=== PATIENT | male | born 1985 ===

== ENCOUNTER 2023-12-31 06:57 | Emergency (ER) | payer OTHER, SELFPAY ==
--- NOTE | ~2023-12-31 | XR_ITS ---
EXAMINATION: XR CHEST CLINICAL INFORMATION: Chest pain and cough. COMPARISON: 08/02/2012 TECHNIQUE: 2 views of the chest were obtained. FINDINGS: No significant abnormality is noted involving the heart, lungs, mediastinum, bony thorax or soft tissues. XR/XR chest 2V IMPRESSION: Unremarkable examination.
[2023-12-31 07:01] VITALS: BP 160/78; PULSE 93; O2SAT 96
[2023-12-31 07:09] VITALS: BP 123/88; PULSE 92; RESP 16; TEMP 37.1; O2SAT 95; BMI 34.0
[2023-12-31 07:14] VITALS: RESP 14
--- NOTE | 2023-12-31 07:14 | PC.NURSE ---
Patient arrives by EMS, appears to be anxious, unable to fully sit still, avoiding direct eye contact with this RN, speech occasionally pressure. Patient reports that he called 911 because he has been having increasing suicidal thoughts over the past few days seconadry to being off medications and smoking crack regularly. He denies any plan to hurt himself, but endorses constant thoughts. He is calm and cooperative but does report increased anxiety and inability to focus. He is requesting something to help with the anxiety. He is alert and oriented x4, respriations even and unlabored, appears to be in no apparent distress at this time, MD aware of patient's increased anxiety
--- NOTE | 2023-12-31 07:20 | ED_ITS ---
HPI - Anxiety General Chief Complaint: Psychiatric Symptoms Stated Complaint: SI, NO PLAN,ANXIETY PER EMS Time Seen by Provider: 12/31/23 06:59 Source: patient, EMS, RN notes reviewed and old records reviewed Mode of arrival: EMS Limitations: no limitations History of Present Illness HPI narrative: 38 year old male with pmhx significant for polysubstance abuse and asthma presents to the ED today via EMS from home for evaluation of anxiety, depression, and increased suicidal ideation x 1 month. He denies current plan however has thought about jumping in front of a car recently. Denies HI. Denies AH/TH/VH. Endorses smoking crack cocaine, last used yesterday. States his only past medical history is asthma and does not currently take anything for this. Additionally he endorses intermittent sharp left-sided chest pain x months. These episodes will last for a few minutes before completely resolving on their own. No clear exacerbating or relieving factors. Has not had these symptoms before. He does not have chest pain at present. States he would like my lungs checked as he smokes a lot of cocaine and marijuana. Last week he was coughing and coughed up bloody sputum. Denies ETOH consumption. Denies fever, chills, neck or back pain, shortness of breath, palpitations, abdominal pain, nausea/vomiting. Related Data Home Medications Medication Instructions Recorded Confirmed No Known Home Meds 12/31/23 12/31/23 Allergies Allergy/AdvReac Type Severity Reaction Status Date / Time hydrocodone [From VICODIN] Allergy Mild NAUSEA & Unverified 12/31/23 07:18 VOMITING Review of Systems 2 Review of Systems: Constitutional: No fever, chills, fatigue, night sweats, weight changes ENT/Mouth: No ear pain, hearing loss, nasal congestion, sinus pain, rhinorrhea, sore throat Eyes: No eye pain, swelling, redness, vision changes, discharge Cardio: No chest pain, palpitations, GIBSON, orthopnea, peripheral edema Pulm: No SOB, cough, sputum, wheezing, dyspnea, hemoptysis GI: No nausea, vomiting, hematemesis, abdominal pain, diarrhea, constipation, hematochezia, melena : No irregular bleeding, dysuria, frequency, urgency, hesitancy, hematuria, flank pain, urinary flow changes, urinary incontinence or retention MSK: No back pain, neck pain, joint pain, myalgias Skin: No lesions, rashes Neuro: No weakness, numbness, paresthesias, LOC, dizziness, headache Psych: No HI, AH/VH, + anxiety, + depression, + suicidal ideation All other systems reviewed and are negative. [facility] Past Medical History Attestation statement: The following information was validated with the patient. Source: old records reviewed and nursing notes reviewed Social History Social History Alcohol intake: current Alcohol intake frequency: a few times a month Alcohol type: beer and hard liquor Smoked in Last 30 Days: Yes Use of substances other than those prescribed or required for medical reasons: Yes Substance Use Type: Crack/Cocaine and Marijuana Substance Use Frequency: Chronic Longstanding Last Used Substance: Days (ago) Any prior treatment program specific to substance use: No Advance Directives: No Advance Directives Information Provided: No Physical Exam 2 Vital Signs: Vital Signs: Last Vital Signs Temp 98.8 F 12/31/23 07:09 Pulse 92 12/31/23 07:09 Resp 14 12/31/23 07:14 BP 123/88 12/31/23 07:09 Pulse Ox 95 12/31/23 07:09 O2 Del Method Room Air 12/31/23 07:09 BMI result Body Mass Index 34.0 Vital signs stable, afebrile Const: Other: + anxious, restless General: cooperative and no acute distress Orientation/consciousness: p atient oriented x3 Limitations: no limitations HEENT: Head: Yes normal to inspection, Yes normocephalic and Yes atraumatic Eyes: Other: + injected conjunctiva bilaterally Pupils: Equal, round and reactive pupils present Neck: Neck: Yes normal visual inspection, Yes full ROM and Yes no lymphadenopathy Chest: Chest palpation & inspection: normal inspection of the chest and normal palpation of entire chest wall Resp: Effort & Inspection: normal respiratory effort and able to speak in complete sentences Auscultation: clear to auscultation bilaterally Cardio: Rate: regular rate Rhythm: regular rhythm GI: Inspection: Yes normal to inspection : General: Yes no CVA tenderness Back/Spine/Pelvis: Back: no CVA tenderness Skin: General skin exam: no rashes or lesions noted Neuro: General: patient oriented x3 and gait normal Cranial nerves: Yes CN's II-XII intact bilaterally and Yes Equal, round and reactive pupils present Extrem: General: Yes normal to inspection Psych: Other: + pressured speech Attitude: cooperative Thought content: Suicidality present Course Course Course Narrative: 09-- CBC with slight leukocytosis to 11.7, no left shift. No anemia. H&H stable. Chemistry without acute electrolyte abnormality requiring intervention. Normal liver function. Lipase WNL. Troponin undetectable. Will repeat. Urine without infection or blood. Urine drug screen positive for cocaine and marijuana. Ethanol undetectable. Patient was tested negative for COVID. EKG shows normal sinus rhythm with sinus arrhythmia, rate of 72 beats per minute, QT 382, QTC 418. EKG does show LVH however there are no acute ischemic changes or ST elevations. CXR unremarkable. 1006-- physician observation initiated pending repeat troponin and care team evaluation. 1159-- delta troponin flat. No concern for ACS. Physician observation continued pending care team evaluation. Medications Administered Discontinued Medications Generic Name Dose Route Start Last Admin Trade Name Freq PRN Reason Stop Dose Admin Diphenhydramine HCl 50 mg 12/31/23 08:46 12/31/23 08:54 Diphenhydramine Hcl 25 Mg Capsule PO 12/31/23 08:47 50 mg ONCE ONE Administration Lorazepam 1 mg 12/31/23 07:21 12/31/23 07:31 Lorazepam 1 Mg Tablet PO 12/31/23 07:22 1 mg ONCE ONE Administration Lorazepam 2 mg 12/31/23 08:45 12/31/23 08:54 Lorazepam 1 Mg Tablet PO 12/31/23 08:46 2 mg ONCE ONE Administration Medical Decision Making Medical Decision Making [facility] Narrative: 38 year old male with pmhx significant for polysubstance abuse and asthma presents to the ED today via EMS from home for evaluation of anxiety, depression, and increased suicidal ideation x 1 month. Vital signs stable. He is nontoxic appearing in no acute distress. Visibly anxious and restless on exam. Bilateral conjunctival injection. Lungs CTA bilaterally. No wheezes rales rhonchi. RRR. No obvious skin lesions or rashes. Differential diagnosis includes polysubstance abuse, arrhythmia, ACS, pneumonia, anxiety, depression, SI Plan for labs, troponin, EKG, chest x-ray, care team consultation. Differential Diagnosis Differential Diagnoses: The differential diagnosis associated with the presentation includes As above. Admission/Observation Indicated Lab Data [facility] Lab Attestation statement: I reviewed the patient's lab results. As above 12/31/23 08:29 12/31/23 08:29 Labs: Lab Results 12/31/23 12/31/23 12/31/23 Range/Units 07:22 08:29 11:18 WBC 11.7 H (4.8-10.8) X10*3/uL RBC 5.06 (4.60-5.80) X10*6/uL Hgb 15.8 (14.0-18.0) g/dl Hct 45.0 (42.0-52.0) % MCV 88.9 (80.0-98.0) fL MCH 31.2 (27.0-33.0) pg MCHC 35.1 (31.0-36.0) g/dl RDW 11.9 (11.0-16.0) % Plt Count 215 (160-400) X10*3/uL MPV 10.6 (9.4-12.4) fL Immature Gran % (Auto) 0.5 H (0.0-0.4) % Neut % (Auto) 68.1 (45-73) % Lymph % (Auto) 22.1 (20-40) % Nelson % (Auto) 7.6 (2-11) % Eos % (Auto) 1.4 (0-4) % Baso % (Auto) 0.3 (0-2) % Lymph # (Auto) 2.6 (1.2-4.9) X10*3/uL Nelson # (Auto) 0.9 (0.1-1.2) X10*3/uL Eos # (Auto) 0.2 (0.0-0.4) X10*3/uL Baso # (Auto) 0.0 (0.0-0.2) X10*3/uL Abs Immat Gran (auto) 0.06 H (0.00-0.03) X10*3/uL Absolute Neuts (auto) 8.0 (2.0-8.3) x10*3/uL Absolute Nucleated RBC 0.000 (0.0-0.012) X10*3/uL Nucleated RBC % (auto) 0.0 (0.0-0.2) /100WBC Sodium 140 (135-145) mmol/L Potassium 3.3 (3.3-5.1) mmol/L Chloride 106 (96-108) mmol/L Carbon Dioxide 26 (22-29) mmol/L Anion Gap 11 L (12-20) BUN 22 H (9-16) mg/dL Creatinine 1.22 (0.5-1.4) mg/dL Estim Creat Clear Calc 97.7 Estimated GFR > 60 Random Glucose 114 (60-115) mg/dL Calcium 9.4 (8.4-10.2) mg/dL Magnesium 1.9 (1.6-2.6) mg/dL Total Bilirubin 0.6 (0.0-1.0) mg/dL AST 18 (5-37) U/L ALT 17 (0-40) U/L Alkaline Phosphatase 83 (39-117) U/L Troponin I High Sens < 2.7 < 2.7 (<3.5-35.0) ng/L Total Protein 7.6 (6.5-8.0) g/dL Albumin 4.4 (3.5-5.0) g/dL Lipase 32 (8-78) U/L Urine Color Yellow Urine Appearance Clear Urine pH 5.5 (5.0-9.0) Ur Specific [place] >= 1.030 H (1.005-1.025) Urine Protein Negative (Neg-Trace) mg/dL Urine Glucose (UA) Negative (Negative) mg/dL Urine Ketones Trace (Negative) mg/dL Urine Blood Negative (Negative) Urine Nitrite Negative (Negative) Ur Leukocyte Esterase Negative (Negative) Salicylates < 5.0 L (15-30) mg/dL Urine Opiates Screen Not Detected (Not Detect) Urine Fentanyl Screen Not Detected (Not Detect) Ur Barbiturates Screen Not Detected (Not Detect) Ur Phencyclidine Scrn Not Detected (Not Detect) Ur Amphetamines Screen Not Detected (Not Detect) U Benzodiazepines Scrn Not Detected (Not Detect) Urine Cocaine Screen POSITIVE H (Not Detect) U Marijuana (THC) Screen POSITIVE H (Not Detect) Ethyl Alcohol < 10 mg/dL COVID-19 (SUNI) Negative (Negative) COVID-19 Clin Com See Note Independent Interpretation I performed an independent interpretation of an: EKG and Plain X-Ray Interpretation: EKG showed normal sinus rhythm with sinus arrhythmia at a rate of 72 beats per minute, QT 382, QTC 418, possible left ventricular hypertrophy, no acute ischemic changes or ST elevations. Findings discussed with my attending physician, Dr. Jhaveri. I have personally reviewed chest x-ray and agree with radiologist's interpretation. Radiology Impression Discussion of test interpretation with radiology: I have reviewed the radiologist's reading. Radiologist Impression: XR chest 2V IMPRESSION: Unremarkable examination. Independent Historian Clinical information obtained from an independent historian. History obtained from or confirmed by: EMS Prescription Management I considered prescription management with: Other (Anxiolytic) Chronic Conditions Patient?s care impacted by: Other (asthma, polysubstance abuse) Social Determinants Patient?s care significantly limited by Social Determinants of Health including: Alcoholism and drug addiction in family, Problems related to primary support group and Other Social Determinant of Health Discharge Plan Discharge Clinical Impression: Acute anxiety, Suicidal ideation, Depression, Polysubstance abuse Patient Disposition: Still a Patient Additional Instructions: Your labs are normal. Your urine does not show infection. Your EKG was reassuring. Your chest xray was normal. Prescriptions: No Action No Known Home Meds Interventions: [place]-Suicide Risk Severity Scale Last Done: 12/31/23 07:12
[2023-12-31 07:31] LABS: Appearance Urine Clear; Color Urine Yellow; Glucose Urine UA Negative (Negative); Leukocyte Esterase Urine Negative (Negative); Nitrite Urine Negative (Negative); PH 5.5 (5.0-9.0); Specific Gravity - Urine >= 1.030 (1.005-1.025); Urine Blood Negative (Negative); Urine Ketones Trace mg/dL (Negative); Urine Protein Negative (Neg-Trace)
[2023-12-31] MEDS: LORazepam 1 MG TABLET PO (07:31)
[2023-12-31 07:35] LABS: Amphetamine Screen Urine Not Detected (Not Detect); Barbiturates, Urine Not Detected (Not Detect); Benzodiazepines Screen Urine Not Detected (Not Detect); Cannabinoid Screen Urine POSITIVE (Not Detect); Cocaine Screen Urine POSITIVE (Not Detect); Fentanyl, urine Not Detected (Not Detect); Opiate Screen Urine Not Detected (Not Detect); Phencyclidine Screen Urine Not Detected (Not Detect)
--- NOTE | 2023-12-31 07:41 | ECG_ITS ---
Test Reason : CHEST PAIN Blood Pressure : / mmHG Vent. Rate : 072 BPM Atrial Rate : 072 BPM P-R Int : 142 ms QRS Dur : 102 ms QT Int : 382 ms P-R-T Axes : -08 -07 -07 degrees QTc Int : 418 ms Normal sinus rhythm with sinus arrhythmia Voltage criteria for left ventricular hypertrophy ( R in aVL , Sokolow-Luke , [place] product ) Abnormal ECG When compared with ECG of 16-AUG-2019 09:14, Questionable change in QRS axis T wave inversion now evident in Inferior leads Referred By: America Stark Electronically Signed By:PATRICIA MORELAND MD
[2023-12-31 08:35] LABS: MANUAL DIFF FLAG NO
[2023-12-31 08:42] LABS: Basophils Percent Auto 0.3 % (0-2); Eosinophils Absolute Auto 0.2 X10*3/uL (0.0-0.4); Eosinophils Percent Auto 1.4 % (0-4); Hemoglobin 15.8 g/dl (14.0-18.0); Imm Gran Abs Auto 0.06 X10*3/uL (0.00-0.03); Imm Gran Pct Auto 0.5 % (0.0-0.4); Lymphocytes Absolute Auto 2.6 X10*3/uL (1.2-4.9); Lymphocytes Percent Auto 22.1 % (20-40); Mean Corpuscular HGB Conc 35.1 g/dl (31.0-36.0); Mean Corpuscular Hemoglobin 31.2 pg (27.0-33.0); Mean Corpuscular Volume 88.9 fL (80.0-98.0); Mean Platelet Volume 10.6 fL (9.4-12.4); Monocytes Absolute Auto 0.9 X10*3/uL (0.1-1.2); Monocytes Percent Auto 7.6 % (2-11); Neutrophils Percent Auto 68.1 % (45-73); Platelet Count 215 X10*3/uL (160-400); Red Blood Count 5.06 X10*6/uL (4.60-5.80); Red Cell Distribution Width 11.9 % (11.0-16.0); White Blood Count 11.7 X10*3/uL (4.8-10.8)
[2023-12-31 08:49] LABS: COVID-19 Test Negative (Negative); IDNOW Serial# 152EDE1D
--- NOTE | 2023-12-31 08:50 | PC.NURSE ---
patient reporting increasing anxiety despite dose of Ativan, MOHINDER Cross aware
[2023-12-31 08:51] LABS: Salicylate < 5.0 mg/dL (15-30)
[2023-12-31 08:53] LABS: Alanine Aminotransferase 17 U/L (0-40); Albumin Level 4.4 g/dL (3.5-5.0); Alkaline Phosphatase 83 U/L (39-117); Anion Gap 11 (12-20); Aspartate Amino Transferase 18 U/L (5-37); Bilirubin Total 0.6 mg/dL (0.0-1.0); Blood Urea Nitrogen 22 mg/dL (9-16); Calcium 9.4 mg/dL (8.4-10.2); Carbon Dioxide 26 mmol/L (22-29); Chloride 106 mmol/L (96-108); Creatinine Clr Calc Pharmacy 97.7; Estimated Glomerular Filt Rate > 60; Ethanol < 10 mg/dL; Glucose Random 114 mg/dL (60-115); Lipase 32 U/L (8-78); Magnesium 1.9 mg/dL (1.6-2.6); Potassium 3.3 mmol/L (3.3-5.1); Sodium 140 mmol/L (135-145); Total Protein 7.6 g/dL (6.5-8.0)
[2023-12-31] MEDS: diphenhydrAMINE HCL 25 MG CAPSULE 50 MG PO (08:54)
[2023-12-31] MEDS: LORazepam 1 MG TABLET 2 MG PO ×2 (08:54→17:40)
[2023-12-31 09:01] LABS: Troponin-I High Sensitivity < 2.7 ng/L (<3.5-35.0)
[2023-12-31 11:53] LABS: Troponin-I High Sensitivity < 2.7 ng/L (<3.5-35.0)
--- NOTE | 2023-12-31 13:08 | PC.NURSE ---
Patient appears to be sleeping, respirations even and unlabored, no apparent distress noted. Pt medically cleared and seen by CARE team, lunch placed by patient's bed
--- NOTE | 2023-12-31 17:17 | MHC.CARE ---
Patient evaluated by the CARE Team and determined most appropriate for [facility] and referral was made to [facility] at 1300 and patient completed phone screening. Facility does not have staff to complete intakes today and patient will need to be re-referred in the am. CARE Team to follow up. Patient is not on a Section 12A. Dr. Jhaveri updated and in agreement with plan
--- NOTE | 2023-12-31 18:10 | PC.NURSE ---
Late entry: patient reports increasing anxiety. MOHINDER Jose aware, medication ordered and administered per MAR
--- NOTE | 2023-12-31 19:32 | PC.NURSE ---
patient visible in milieu, receivd visitor who brought him some frozen snacks and sodas, patient frequesntly approaching desk for various requests, but appropriate.
[2023-12-31] MEDS: Nicotine Polacrilex 2 MG GUM BUCCAL (19:46)
[2023-12-31 19:55] VITALS: BP 111/73; PULSE 78; RESP 18; TEMP 36.8; O2SAT 98
[2024-01-01] MEDS: LORazepam 1 MG TABLET 2 MG PO (00:07)
--- NOTE | 2024-01-01 00:29 | PC.NURSE ---
client became increasingly demanding when he felt he was waiting too long for medication and didnt seem to understand having to share a provider with the remainder of ED, arguing with staff and using foul language, seeming frustrated by rules in pod (not being able to access phones after 0000) client later apologized for his behavior once meds delivered.
[2024-01-01 05:47] VITALS: RESP 16
--- NOTE | 2024-01-01 07:15 | PC.NURSE ---
Assumed care of patient at 0700, patient awake eating breakfast in no apparent distress. Patient reports to this RN that night nurse was a fucking bitch, she wouldn't get my my meds quick enough . this RN attempted to clarify however, it seemed to upset patient more, patient was redirected and is now calm and cooperative in no apparent distress. Continue plan of care for sec 12 inpatient bedsearch
[2024-01-01 07:19] VITALS: BP 119/78; PULSE 66; RESP 16; TEMP 36.2; O2SAT 100
--- NOTE | 2024-01-01 09:03 | MHC.CARE ---
CARE Team activated [facility] referral
[2024-01-01] MEDS: LORazepam 1 MG TABLET PO (11:41)
--- NOTE | 2024-01-01 12:13 | MHC.CARE ---
CARE Team received a call from [facility] Pt has been accepted for 1330 admission
[2024-01-01 12:21] VITALS: BP 124/87; PULSE 87; RESP 16; TEMP 36.6; O2SAT 99
== END 2024-01-01 12:28 | disposition home or self-care (01) ==
PROVIDERS: Physician Assistant Medical; Emergency Provider Emergency Medicine
DX: F41.9 Anxiety disorder, unspecified (principal); R45.851 Suicidal ideations; F32.A Depression, unspecified; F19.10 Other psychoactive substance abuse, uncomplicated; Z11.52 Encounter for screening for COVID-19; R07.9 Chest pain, unspecified; J45.909 Unspecified asthma, uncomplicated
CPT/HCPCS: 36415; 71046; 80053; 80179; 80307; 81003; 83690; 83735; 84484; 85025; 87635; 93005; 99285; S9485

== ENCOUNTER → 2023-12-31 07:41 | Outpatient (BNV) | payer OTHER, SELFPAY | PROVIDERS: Emergency Provider Emergency Medicine; Visit Provider Internal Medicine Cardiovascular Disease | DX: R07.9 Chest pain, unspecified (principal) | CPT/HCPCS: 93010 ==

== ENCOUNTER 2024-09-25 09:01 | Emergency (ER) | payer OTHER, SELFPAY ==
[2024-09-25 09:03] VITALS: BP 146/76; PULSE 105; RESP 18; TEMP 36.3; O2SAT 98; BMI 36.9
--- NOTE | 2024-09-25 09:32 | ED_ITS ---
HPI - General Adult General Chief complaint: Psychiatric Symptoms Stated complaint: si Time Seen by Provider: 09/25/24 09:29 Source: patient Mode of arrival: ambulatory Limitations: no limitations History of Present Illness ED Provider: Melody Suggs PA-C HPI narrative: Patient is a 39 year old assigned male at with a history of crack/cocaine use/abuse, alcohol use/abuse, and marijuana use/abuse presenting to the emergency department today with suicidal ideation. Patient states that he was recently at the [facility] in [place] but felt as though he was not getting the treatment he needs. Patient states that he feels as though he is going to hurt himself if he does not get help. Patient denies any dizziness, lightheadedness, abdominal pain, nausea, vomiting, fever, chills, blurry vision, double vision, loss of vision, chest pain, difficulty breathing, shortness of breath, back pain, night sweats, pain with urination, increased urinary frequency, increased urinary urgency, blood in his urine or stool, syncope or a near syncopal episode, recent trauma or falls, bowel incontinence, bladder incontinence, or any other complaints at this time. Relieving factors: none Exacerbating factors: none Associated symptoms: denies other symptoms Treatments prior to arrival: none Related Data Home Medications ?Medication ?Instructions ?Recorded ?Confirmed buspirone 15 mg tablet 15 mg PO TID 09/25/24 09/25/24 clonidine HCl 0.1 mg tablet 0.1 mg PO BEDTIME 09/25/24 09/25/24 escitalopram oxalate 10 mg tablet 10 mg PO DAILY 09/25/24 09/25/24 gabapentin 400 mg capsule 400 mg PO TID 09/25/24 09/25/24 naltrexone 50 mg tablet 50 mg PO DAILY 09/25/24 09/25/24 trazodone 50 mg tablet 50 - 100 mg PO BEDTIME PRN Insomnia 09/25/24 09/25/24 Allergies Allergy/AdvReac Type Severity Reaction Status Date / Time hydrocodone [From VICODIN] Allergy Mild NAUSEA & Verified 09/25/24 09:06 VOMITING Review of Systems 2 Constitutional: Constitutional: Reports no additional constitutional complaints, Denies chills, Denies fever(s) and Denies night sweats Eyes: Eyes: Reports no additional eye complaints, Denies blurry vision, Denies change in vision, Denies diplopia, Denies eye discharge, Denies loss of vision and Denies eye pain ENT: Denies dizziness Cardiovascular: Cardiovascular: Reports no additional cardiovascular complaints, Denies chest pain, Denies lightheadedness, Denies Loss of Consciousness and Denies dyspnea Respiratory: Respiratory: Reports no additional respiratory complaints and Denies dyspnea Gastrointestinal: Gastrointestinal: Reports no additional gastrointestinal complaints, Denies abdominal pain, Denies melena, Denies hematochezia, Denies change in bowel habits and Denies change in stool character Genitourinary: Genitourinary: Reports no additional male genitourinary complaints, Denies hematuria, Denies oliguria, Denies difficulty urinating, Denies dysuria, Denies urinary frequency, Denies urinary hesitancy, Denies urinary incontinence and Denies urinary urgency Musculoskeletal: Musculoskeletal: Reports no additional musculoskeletal complaints, Denies numbness and Denies tingling Neurologic: Denies dizziness, Denies loss of vision, Denies numbness and Denies tingling Psychiatric: Psychiatric: Reports no additional psychiatric complaints, Denies homicidal ideation and Reports suicidal ideation Endocrine: Endocrine: Reports no additional endocrine complaints Hematologic/Lymphatic: Hematologic/Lymphatic: Reports no additional hematologic/lymphatic complaints Allergic/Immunologic: Allergic/Immunologic: Reports no additional allergic/immunologic complaints PMF Past Medical History Attestation statement: The following information was validated with the patient. Source: old records reviewed and nursing notes reviewed Social History Social History Alcohol intake: current Alcohol intake frequency: 3 or more drinks per day Alcohol type: hard liquor Smoked in Last 30 Days: Yes Use of substances other than those prescribed or required for medical reasons: Yes Substance Use Type: Crack/Cocaine and Marijuana Substance Use Frequency: Daily Substance Use Frequency Other:: has been on a binge with drinking and drugs for the past 2-3 days Last Used Substance: Just Prior to Admission Any prior treatment program specific to substance use: Yes Advance Directives: No Advance Directives Information Provided: No Physical Exam ED Vital Signs: Vital Signs - 24 hr 09/25/24 09:03 09/25/24 14:00 Temperature 97.3 F Pulse Rate 105 H Respiratory Rate 18 16 Blood Pressure 146/76 H Pulse Oximetry 98 Oxygen Delivery Method Room Air BMI result Body Mass Index 36.9 Const General: cooperative, no acute distress, alert and awake Nutritional Appearance: well nourished Orientation/consciousness: patient oriented x3 Limitations: no limitations HENMT Head: Yes normal to inspection and Yes atraumatic Ears: hearing grossly normal bilaterally and external ears normal General nose exam: Normal external nose present, no nasal discharge noted and no epistaxis Face and sinus: Yes normal facial exam, No abrasion and No laceration Mouth: Normal oral and palatal mucosa present, no drooling and no muffled voice Eyes General: appearance normal, both eyes and all related structures Periorbital: periorbital findings normal Eyelids: Yes eyelids normal Conjunctivae: conjunctivae normal Pupils: Equal, round and reactive pupils present EOM: EOMs intact bilaterally Neck Neck: Yes normal visual inspection, Yes full ROM and Yes no lymphadenopathy Chest Chest palpation & inspection: normal inspection of the chest Resp Effort & Inspection: normal respiratory effort and able to speak in complete sentences GI Inspection: Yes normal to inspection Neuro General: patient oriented x3 and moves all extremities Cranial nerves: Yes Equal, round and reactive pupils present Cognition (Neuro): normal cognition Extrem General: Yes normal to inspection, Yes full ROM and Yes capillary refill normal Psych Appearance: grossly normal Mental Status: mental status grossly normal Affect: Sad affect present Attitude: Guarded attititude/behavior present Thought content: Suicidality present Medications Administered Discontinued Medications Generic Name Dose Route Start Last Admin Trade Name Jennifer PRN Reason Stop Dose Admin Ibuprofen 600 mg 09/25/24 09:09 09/25/24 11:30 Ibuprofen 600 Mg Tablet PO 09/25/24 09:10 600 mg ONCE ONE Administration Lorazepam 2 mg 09/25/24 10:35 09/25/24 11:30 Lorazepam 1 Mg Tablet PO 09/25/24 10:36 2 mg ONCE ONE Administration Medical Decision Making Medical Decision Making [facility] Narrative: Patient is a 39 year old assigned male at with a history of crack/cocaine use/abuse, alcohol use/abuse, and marijuana use/abuse presenting to the emergency department today with suicidal ideation. Patient's physical exam was as noted in the physical exam portion of this note. Patient's blood work showed an elevated WBC count of 16.5 however, the patient's clinical presentation is not consistent with infection or sepsis (@1000). This elevation is likely secondary to a stress reaction. Patient's urine showed no acute process. Patient's EKG was unremarkable.I explained my physical exam findings as well as all test results to the patient. I answered all questions asked by the patient. Patient's disposition is pending CARE team evaluation. 1630 ---> Patient evaluated by CARE team who arranged disposition for the patient. Patient cleared for discharged and observation ended with no indication for hospitalization at 1630 on 09/25/2024. Differential Diagnosis Differential Diagnoses: The differential diagnosis associated with the presentation includes Suicidal ideation Depression Cocaine abuse Alcohol abuse Marijuana abuse Admission/Observation Consideration of admission/observation: Escalation of care including admission/observation considered Patient would have been admitted to the hospital had his work up had any findings where hospital admission was appropriate and his clinical presentation warranted hospital admission. Consult Healthcare Provider Management of the patient was discussed with: Behavioral Health Provider (spoke to the CARE team as noted in the MDM Rationale portion of this note.) Lab Data [facility] Lab Attestation statement: I reviewed the patient's lab results. My interpretation of these results are in the MDM Rationale portion of this note. 09/25/24 09:46 09/25/24 09:46 Labs: Lab Results 09/25/24 09/25/24 Range/Units 09:46 09:49 WBC 16.5 H (4.8-10.8) X10*3/uL RBC 4.84 (4.60-5.80) X10*6/uL Hgb 15.0 (14.0-18.0) g/dl Hct 42.5 (42.0-52.0) % MCV 87.8 (80.0-98.0) fL MCH 31.0 (27.0-33.0) pg MCHC 35.3 (31.0-36.0) g/dl RDW 12.1 (11.0-16.0) % Plt Count 231 (160-400) X10*3/uL MPV 9.8 (9.4-12.4) fL Immature Gran % (Auto) 0.5 H (0.0-0.4) % Neut % (Auto) 79.6 H (45-73) % Lymph % (Auto) 11.7 L (20-40) % [place] % (Auto) 7.9 (2-11) % Eos % (Auto) 0.1 (0-4) % Baso % (Auto) 0.2 (0-2) % Lymph # (Auto) 1.9 (1.2-4.9) X10*3/uL [place] # (Auto) 1.3 H (0.1-1.2) X10*3/uL Eos # (Auto) 0.0 (0.0-0.4) X10*3/uL Baso # (Auto) 0.0 (0.0-0.2) X10*3/uL Abs Immat Gran (auto) 0.09 H (0.00-0.03) X10*3/uL Absolute Neuts (auto) 13.1 H (2.0-8.3) x10*3/uL Absolute Nucleated RBC 0.000 (0.0-0.012) X10*3/uL Nucleated RBC % (auto) 0.0 (0.0-0.2) /100WBC Sodium 138 (135-145) mmol/L Potassium 3.7 (3.3-5.1) mmol/L Chloride 101 (96-108) mmol/L Carbon Dioxide 23 (22-29) mmol/L Anion Gap 18 (12-20) BUN 19 H (9-16) mg/dL Creatinine 0.94 (0.5-1.4) mg/dL Estim Creat Clear Calc 130.8 Estimated GFR > 60 Random Glucose 111 (60-115) mg/dL Calcium 9.6 (8.4-10.2) mg/dL Total Bilirubin 0.3 (0.0-1.0) mg/dL AST 35 (5-37) U/L ALT 27 (0-40) U/L Alkaline Phosphatase 85 (39-117) U/L Total Protein 7.6 (6.5-8.0) g/dL Albumin 4.4 (3.5-5.0) g/dL Salicylates < 5.0 L (15-30) mg/dL Urine Opiates Screen Not Detected (Not Detect) Ur Buprenorphine Scrn Not Detected (Not Detect) ng/mL Ur Oxycodone Screen Not Detected (Not Detect) ng/mL Urine Methadone Screen Not Detected (Not Detect) ng/mL Urine Fentanyl Screen Not Detected (Not Detect) Acetaminophen < 3 (<30) mcg/mL Ur Barbiturates Screen Not Detected (Not Detect) Ur Phencyclidine Scrn Not Detected (Not Detect) Ur Amphetamines Screen Not Detected (Not Detect) U Benzodiazepines Scrn Not Detected (Not Detect) Urine Cocaine Screen POSITIVE H (Not Detect) U Marijuana (THC) Screen POSITIVE H (Not Detect) Ethyl Alcohol < 10 mg/dL COVID-19 (SUNI) Negative (Negative) COVID-19 Clin Com See Note Independent Interpretation I performed an independent interpretation of an: EKG Interpretation: Vent. Rate: 088 BPM Atrial Rate: 088 BPM P-R Int: 140 ms QRS Dur: 098 ms QT Int: 354 ms P-R-T Axes: 062 055 036 degrees QTc Int: 428 ms Normal sinus rhythm Normal ECG When compared with ECG of 31-DEC-2023 09:17, Questionable change in QRS axis T wave inversion no longer evident in Inferior leads Referred By: Melody Suggs Electronically Signed By: DD/ 1020 Discharge Plan Discharge Clinical Impression: Depression Patient Disposition: Home, Self-Care Instructions: Depression (DC) Additional Instructions: Please go where the CARE Team has directed you to. Follow up with your primary care provider. Return to the emergency department immediately if your symptoms worsen or if you develop any dizziness, shortness of breath, difficulty breathing, chest pain, blurry vision, loss of vision, nausea, vomiting, abdominal pain, fever, chills, back pain, or any other complaints. [facility] at [facility]: [address] [place] [address] [phone] Walk in hours from 10am - 12pm Open from 10am - 12pm [facility] Crisis Services: [address] [place] [address] Walk in hours from 10am - 12pm Open 11/05 Behavioral health Network: [address] [place] [address] [place] [id number] Hours: M-F 8am to 8pm Thursday and Thursday 9am to 5pm Prescriptions: No Action clonidine HCl 0.1 mg tablet 0.1 mg PO BEDTIME trazodone 50 mg tablet 50 - 100 mg PO BEDTIME PRN (Reason: Insomnia) naltrexone 50 mg tablet 50 mg PO DAILY gabapentin 400 mg capsule 400 mg PO TID buspirone 15 mg tablet 15 mg PO TID escitalopram oxalate 10 mg tablet 10 mg PO DAILY Referrals: [facility] Family Medicine [Provider Group] (Call to establish and follow up with a primary care provider. If you already have a primary care provider, please follow up with them.) [facility] Primary Care, [place] [Provider Group] (Call to establish and follow up with a primary care provider. If you already have a primary care provider, please follow up with them.) [facility] Primary [facility] [Provider Group] (Call to establish and follow up with a primary care provider. If you already have a primary care provider, please follow up with them.) Interventions: [place]-Suicide Risk Severity Scale Last Done: 09/25/24 13:12 Print Language: Yi
--- NOTE | 2024-09-25 09:32 | ECG_ITS ---
Test Reason : MEDICAL CLEARANCE Blood Pressure : / mmHG Vent. Rate : 088 BPM Atrial Rate : 088 BPM P-R Int : 140 ms QRS Dur : 098 ms QT Int : 354 ms P-R-T Axes : 062 055 036 degrees QTc Int : 428 ms Normal sinus rhythm Normal ECG When compared with ECG of 31-DEC-2023 09:17, Questionable change in QRS axis T wave inversion no longer evident in Inferior leads Referred By: Melody Suggs Electronically Signed By:PATRICIA MORELAND MD
[2024-09-25 09:58] LABS: MANUAL DIFF FLAG NO
[2024-09-25 10:06] LABS: Basophils Percent Auto 0.2 % (0-2); Eosinophils Percent Auto 0.1 % (0-4); Hematocrit 42.5 % (42.0-52.0); Imm Gran Abs Auto 0.09 X10*3/uL (0.00-0.03); Imm Gran Pct Auto 0.5 % (0.0-0.4); Lymphocytes Absolute Auto 1.9 X10*3/uL (1.2-4.9); Lymphocytes Percent Auto 11.7 % (20-40); Mean Corpuscular HGB Conc 35.3 g/dl (31.0-36.0); Mean Corpuscular Volume 87.8 fL (80.0-98.0); Mean Platelet Volume 9.8 fL (9.4-12.4); Monocytes Absolute Auto 1.3 X10*3/uL (0.1-1.2); Monocytes Percent Auto 7.9 % (2-11); Neutrophils Absolute Auto 13.1 x10*3/uL (2.0-8.3); Neutrophils Percent Auto 79.6 % (45-73); Platelet Count 231 X10*3/uL (160-400); Red Blood Count 4.84 X10*6/uL (4.60-5.80); Red Cell Distribution Width 12.1 % (11.0-16.0); White Blood Count 16.5 X10*3/uL (4.8-10.8)
--- NOTE | 2024-09-25 10:14 | MHC.EDTECH ---
patient states he wants to stay here at the hospital because he feels unsafe with his thoughts of suicide . He states he is very depressed and is going through a lot at home and is very tired of dealing with it .
[2024-09-25 10:29] LABS: Acetaminophen LAB < 3 mcg/mL (<30); Alanine Aminotransferase 27 U/L (0-40); Albumin Level 4.4 g/dL (3.5-5.0); Alkaline Phosphatase 85 U/L (39-117); Anion Gap 18 (12-20); Aspartate Amino Transferase 35 U/L (5-37); Bilirubin Total 0.3 mg/dL (0.0-1.0); Blood Urea Nitrogen 19 mg/dL (9-16); Calcium 9.6 mg/dL (8.4-10.2); Carbon Dioxide 23 mmol/L (22-29); Chloride 101 mmol/L (96-108); Creatinine Clr Calc Pharmacy 130.8; Estimated Glomerular Filt Rate > 60; Ethanol < 10 mg/dL; Glucose Random 111 mg/dL (60-115); Potassium 3.7 mmol/L (3.3-5.1); Salicylate < 5.0 mg/dL (15-30); Sodium 138 mmol/L (135-145); Total Protein 7.6 g/dL (6.5-8.0)
[2024-09-25 10:30] LABS: Amphetamine Screen Urine Not Detected (Not Detect); Barbiturates, Urine Not Detected (Not Detect); Benzodiazepines Screen Urine Not Detected (Not Detect); Buprenorphine Scr Not Detected (Not Detect); Cannabinoid Screen Urine POSITIVE (Not Detect); Cocaine Screen Urine POSITIVE (Not Detect); Fentanyl, urine Not Detected (Not Detect); Methadone Screen, Urine Not Detected (Not Detect); Opiate Screen Urine Not Detected (Not Detect); Oxycodone Screen Urine Not Detected (Not Detect); Phencyclidine Screen Urine Not Detected (Not Detect)
[2024-09-25] MEDS: LORazepam 1 MG TABLET 2 MG PO (11:30)
[2024-09-25] MEDS: Ibuprofen 600 MG TABLET PO (11:30)
[2024-09-25 12:41] LABS: COVID-19 Test Negative (Negative); IDNOW Serial# 08D9AD1C
[2024-09-25 14:00] VITALS: RESP 16
--- NOTE | 2024-09-25 14:59 | PC.NURSE ---
assumed care of patient at 1445, patient appears to be sleeping, respirations even and unlabored, no apparent distress noted. Per previous RN, patient was very anxious throughout the day and therefore will hold off on vitals until patient is awake to avoid provoking anxiety. Continue plan of care for respite bedsearch
[2024-09-25 16:10] VITALS: BP 124/90; PULSE 75; RESP 16; TEMP 36.6; O2SAT 99
== END 2024-09-25 16:11 | disposition home or self-care (01) ==
PROVIDERS: Physician Assistant Medical; Emergency Provider Emergency Medicine Emergency Medical Services
DX: F33.1 Major depressive disorder, recurrent, moderate (principal); R45.851 Suicidal ideations; F14.90 Cocaine use, unspecified, uncomplicated; F12.10 Cannabis abuse, uncomplicated; Z11.52 Encounter for screening for COVID-19; Z79.899 Other long term (current) drug therapy; Z51.81 Encounter for therapeutic drug level monitoring
CPT/HCPCS: 80053; 80143; 80179; 80307; 85025; 87635; 93005; 99284; 99285

== ENCOUNTER → 2024-09-25 09:32 | Outpatient (BNV) | payer OTHER, SELFPAY | PROVIDERS: Emergency Provider Emergency Medicine Emergency Medical Services; Visit Provider Internal Medicine Cardiovascular Disease | DX: R45.851 Suicidal ideations (principal) | CPT/HCPCS: 93010 ==

== ENCOUNTER 2024-10-12 23:45 | Emergency (ER) | payer OTHER, SELFPAY ==
[2024-10-12 23:46] VITALS: BP 119/77; PULSE 89; RESP 16; TEMP 36.7; O2SAT 97; BMI 36.9
[2024-10-13] VITALS: BP 135/68; PULSE 77; RESP 18; TEMP 36.6; O2SAT 97
--- NOTE | 2024-10-13 01:30 | ED.DENTAL ---
HPI - Dental/Oral General Chief complaint: Dental/Oral Stated complaint: Dental Pain Time Seen by Provider: 10/13/24 01:20 Source: patient Mode of arrival: ambulatory Limitations: no limitations History of Present Illness ED Provider: HPI Narrative: Patient with toothache for last 2 days after biting on a popcorn no prior history of toothache Related Data Home Medications ?Medication ?Instructions ?Recorded ?Confirmed buspirone 15 mg tablet 15 mg PO TID 09/25/24 09/25/24 clonidine HCl 0.1 mg tablet 0.1 mg PO BEDTIME 09/25/24 09/25/24 escitalopram oxalate 10 mg tablet 10 mg PO DAILY 09/25/24 09/25/24 gabapentin 400 mg capsule 400 mg PO TID 09/25/24 09/25/24 naltrexone 50 mg tablet 50 mg PO DAILY 09/25/24 09/25/24 trazodone 50 mg tablet 50 - 100 mg PO BEDTIME PRN Insomnia 09/25/24 09/25/24 Previous Rx's ?Medication ?Instructions ?Recorded amoxicillin 875 mg-potassium 1 tab PO BID #20 tabs 10/13/24 clavulanate 125 mg tablet ibuprofen 600 mg tablet 600 mg PO Q6H PRN fever or pain 10/13/24 #30 tabs oxycodone 5 mg tablet 5 mg PO Q6H PRN pain #20 tabs 10/13/24 Allergies Allergy/AdvReac Type Severity Reaction Status Date / Time hydrocodone [From VICODIN] Allergy Mild NAUSEA & Verified 10/12/24 23:49 VOMITING Review of Systems Review of Systems: Yes all other systems are reviewed and are negative [facility] Social History Social History Alcohol intake: current Alcohol intake frequency: holidays/special occasions only Alcohol type: beer, wine and hard liquor Smoked in Last 30 Days: No Use of substances other than those prescribed or required for medical reasons: No Substance Use Type: Crack/Cocaine and Marijuana Any prior treatment program specific to substance use: No Advance Directives: No Advance Directives Information Provided: Yes Do you have a plan to hurt others: No Plan Physical Exam Vital Signs: Vital Signs: Last Vital Signs Temp 97.9 F 10/13/24 01:52 Pulse 77 12/26/24 01:52 Resp 18 10/13/24 01:52 BP 135/68 10/13/24 01:52 Pulse Ox 97 10/13/24 01:52 O2 Del Method Room Air 10/13/24 01:52 BMI result Body Mass Index 36.9 HEENT: Teeth image: 1. Tender tooth number 30 with small cavity in the middle no significant gum swelling no abscess Medications Administered Discontinued Medications Generic Name Dose Route Start Last Admin Trade Name Freq PRN Reason Stop Dose Admin Amoxicillin/Clavulanate Potassium 875 mg 10/13/24 01:31 10/13/24 01:48 Amoxicillin/Potassium Clav 875 Mg Tablet PO 10/13/24 01:32 875 mg ONCE ONE Administration Oxycodone HCl 10 mg 10/13/24 01:41 10/13/24 01:48 Oxycodone Hcl Immed Release 5 Mg Tablet PO 10/13/24 01:42 10 mg ONCE ONE Administration Medical Decision Making Medical Decision Making [facility] Narrative: Patient with dental pulpitis plan to see dentist will prescribe oxycodone and Augmentin Discharge Plan Discharge Clinical Impression: Dental caries Patient Disposition: Home, Self-Care Instructions: Toothache (ED) Additional Instructions: Take pain medication antibiotic as prescribed and follow up with the dentist as scheduled Prescriptions: New amoxicillin-pot clavulanate 875-125 mg tablet 1 tab PO BID Qty: 20 0RF oxycodone 5 mg tablet 5 mg PO Q6H PRN (Reason: pain) Qty: 20 0RF Rx Instructions: Partial Fill upon patient request. ibuprofen 600 mg tablet 600 mg PO Q6H PRN (Reason: fever or pain) Qty: 30 0RF No Action clonidine HCl 0.1 mg tablet 0.1 mg PO BEDTIME trazodone 50 mg tablet 50 - 100 mg PO BEDTIME PRN (Reason: Insomnia) naltrexone 50 mg tablet 50 mg PO DAILY gabapentin 400 mg capsule 400 mg PO TID buspirone 15 mg tablet 15 mg PO TID escitalopram oxalate 10 mg tablet 10 mg PO DAILY Interventions: ED Discharge Assessment Last Done: 10/13/24 01:52 Discharge Date/Time: 10/13/24 01:53 Print Language: Kazakh
[2024-10-13] MEDS: Amoxicillin/Potassium Clav 875 MG TABLET PO (01:48)
[2024-10-13] MEDS: oxyCODONE HCl Immed Release 5 MG TABLET 10 MG PO (01:48)
[2024-10-13 01:52] VITALS: BP 135/68; PULSE 77; RESP 18; TEMP 36.6; O2SAT 97
== END 2024-10-13 01:53 | disposition home or self-care (01) ==
PROVIDERS: Emergency Provider Internal Medicine; PCP Internal Medicine
DX: K02.9 Dental caries, unspecified (principal); K08.89 Other specified disorders of teeth and supporting structures; F12.90 Cannabis use, unspecified, uncomplicated; Z79.899 Other long term (current) drug therapy
CPT/HCPCS: 99283; 99284

== ENCOUNTER 2024-12-04 15:42 | Emergency (ER) | payer OTHER, SELFPAY ==
[2024-12-04 16:02] VITALS: BP 104/69; PULSE 76; RESP 18; TEMP 36.4; O2SAT 98; BMI 38.4
--- NOTE | 2024-12-04 16:02 | ED_ITS ---
HPI - Dental/Oral General Chief complaint: Dental/Oral Stated complaint: toothache Time Seen by Provider: 12/04/24 16:04 Source: patient, RN notes reviewed and old records reviewed Mode of arrival: ambulatory History of Present Illness ED Provider: Lizbeth Zapata PA-C HPI Narrative: 39-year-old male with past medical history depression, anxiety, presenting to the ED complaining of right-sided dental pain x 2 months. Admits was seen in our ED a few months ago and reports continued pain since that visit. Denies contacting his dentist however states he will try a walk-in tomorrow. Has been taking Motrin at home without relief. Denies fever, chills, difficulty or inability to swallow, drainage from area Related Data Home Medications ?Medication ?Instructions ?Recorded ?Confirmed buspirone 15 mg tablet 15 mg PO TID 09/25/24 09/25/24 clonidine HCl 0.1 mg tablet 0.1 mg PO BEDTIME 09/25/24 09/25/24 escitalopram oxalate 10 mg tablet 10 mg PO DAILY 09/25/24 09/25/24 gabapentin 400 mg capsule 400 mg PO TID 09/25/24 09/25/24 naltrexone 50 mg tablet 50 mg PO DAILY 09/25/24 09/25/24 trazodone 50 mg tablet 50 - 100 mg PO BEDTIME PRN Insomnia 09/25/24 09/25/24 Previous Rx's ?Medication ?Instructions ?Recorded amoxicillin 875 mg-potassium 1 tab PO BID #20 tabs 10/13/24 clavulanate 125 mg tablet ibuprofen 600 mg tablet 600 mg PO Q6H PRN fever or pain 10/13/24 #30 tabs oxycodone 5 mg tablet 5 mg PO Q6H PRN pain #20 tabs 10/13/24 acetaminophen 500 mg tablet 500 mg PO Q6H PRN fever or pain 12/04/24 (Tylenol Extra Strength) #14 tabs amoxicillin 875 mg-potassium 1 tab PO BID 7 days #14 tabs 12/04/24 clavulanate 125 mg tablet morphine 15 mg immediate release 15 mg PO Q6H PRN pain (scale score 12/04/24 tablet 7-10) 3 days #5 tabs naproxen 500 mg tablet 500 mg PO BID PRN pain 10 days #20 12/04/24 tabs Allergies Allergy/AdvReac Type Severity Reaction Status Date / Time hydrocodone [From VICODIN] Allergy Mild NAUSEA & Verified 12/04/24 16:03 VOMITING Review of Systems Review of Systems: Yes all other systems are reviewed and are negative Constitutional: Constitutional: Reports as per [facility] Past Medical History Attestation statement: The following information was validated with the patient. Source: old records reviewed Social History Social History Alcohol intake: current Alcohol intake frequency: holidays/special occasions only Alcohol type: beer, wine and hard liquor Substance Use Type: Crack/Cocaine and Marijuana Physical Exam Vital Signs: Vital Signs: Last Vital Signs Temp 97.6 F 12/04/24 16:02 Pulse 76 12/04/24 16:02 Resp 18 12/04/24 16:02 BP 104/69 12/04/24 16:02 Pulse Ox 98 12/04/24 16:02 O2 Del Method Room Air 12/04/24 16:02 BMI result Body Mass Index 38.4 Const: General: cooperative, healthy appearing and no acute distress Orientation/consciousness: patient oriented x3 Limitations: no limitations HEENT: Other: No appreciable facial swelling. + right posterior lower molar with gingival tenderness. No cellulitis, fluctuance/induration. No drainage. Poor dentition, multiple caries. Head: Yes normal to inspection and Yes atraumatic Ears: hearing grossly normal bilaterally General nose exam: Normal external nose present Face and sinus: Yes normal facial exam Mouth: Normal oral and palatal mucosa present and no drooling Throat: Yes posterior oropharynx normal, Yes tonsils normal, Yes uvula midline, No peritonsillar mass, No uvula laterally displaced and No uvular edema Eyes: General: appearance normal, both eyes and all related structures EOM: EOMs intact bilaterally Neck: Neck: Yes normal visual inspection and Yes no meningeal signs Resp: Effort & Inspection: normal respiratory effort, no respiratory distress and no stridor Cardio: Rate: regular rate Skin: Rashes: no rashes Wounds: no wounds Neuro: General: patient oriented x3, tone normal and no meningeal signs Cranial nerves: Yes CN's II-XII intact bilaterally Gait exam (Neuro): Normal gait present Extrem: General: Yes normal to inspection Medical Decision Making Medical Decision Making MDM Narrative: 39-year-old male with past medical history depression, anxiety, presenting to the ED complaining of right-sided dental pain x 2 months. On exam vital signs stable, NAD, nontoxic appearing, physical exam as noted above. Concern for dental caries/early infection. No evidence of acute abscess or drainable collection at this time. No evidence of WOUND CARE COORDINATOR/retropharyngeal abscess. Plan: P.o. antibiotics, pain control, dentistry follow up tomorrow Please refer to course for remaining clinical decision making, interpretation of labs/imaging results, and discussions with consultants and/or family members. Results discussed with patient including worrisome signs and symptoms and strict return precautions, and when to return to the emergency department. They verbalized understanding and feel safe for discharge at this time. Differential Diagnosis Differential Diagnoses: The differential diagnosis associated with the presentation includes As above External Record Review External record reviewed: Inpatient record, Office record, Outpatient record, Prior outpatient labs, Prior outpatient radiology, Primary care record and Outside ED record Tests considered The following testing was considered but not selected: As above Prescription Management I considered prescription management with: Pain Medication Chronic Conditions Patient?s care impacted by: Other Social Determinants Patient?s care significantly limited by Social Determinants of Health including: Other Social Determinant of Health Discharge Plan Discharge Clinical Impression: Toothache Patient Disposition: Home, Self-Care Instructions: Toothache (ED) Additional Instructions: Augmentin as an antibiotic please take as prescribed In addition take naproxen and Tylenol for pain. Naproxen as an anti- inflammatory/pain medication, take with food Morphine as an opiate pain medication, take only when pain is severe for the next 3 days Follow-up with dentist tomorrow as discussed If symptoms persist or worsen her pain is unbearable return to the ED Prescriptions: New acetaminophen [Tylenol Extra Strength] 500 mg tablet 500 mg PO Q6H PRN (Reason: fever or pain) Qty: 14 0RF naproxen 500 mg tablet 500 mg PO BID PRN (Reason: pain) 10 Days Qty: 20 0RF amoxicillin-pot clavulanate 875-125 mg tablet 1 tab PO BID 7 Days Qty: 14 0RF morphine 15 mg tablet 15 mg PO Q6H PRN (Reason: pain (scale score 7-10)) 3 Days Qty: 5 0RF Rx Instructions: Partial Fill upon patient request. No Action clonidine HCl 0.1 mg tablet 0.1 mg PO BEDTIME trazodone 50 mg tablet 50 - 100 mg PO BEDTIME PRN (Reason: Insomnia) naltrexone 50 mg tablet 50 mg PO DAILY gabapentin 400 mg capsule 400 mg PO TID buspirone 15 mg tablet 15 mg PO TID escitalopram oxalate 10 mg tablet 10 mg PO DAILY amoxicillin-pot clavulanate 875-125 mg tablet 1 tab PO BID Qty: 20 0RF oxycodone 5 mg tablet 5 mg PO Q6H PRN (Reason: pain) Qty: 20 0RF Rx Instructions: Partial Fill upon patient request. ibuprofen 600 mg tablet 600 mg PO Q6H PRN (Reason: fever or pain) Qty: 30 0RF Referrals: Jeff Palencia [Dentist] - Triston Torres DMD [Dentist] - Marquis Razo DMD [Dentist] - Physician,None [Primary Care Provider] - Print Language: [place] African
[2024-12-04 16:21] VITALS: BP 104/69; PULSE 76; RESP 18; TEMP 36.4; O2SAT 98
== END 2024-12-04 16:21 | disposition home or self-care (01) ==
PROVIDERS: Emergency Provider Emergency Medicine
DX: K08.89 Other specified disorders of teeth and supporting structures (principal); Z79.899 Other long term (current) drug therapy
CPT/HCPCS: 99282; 99283

== ENCOUNTER 2024-12-20 00:19 | Inpatient (IN) | payer OTHER, SELFPAY ==
--- NOTE | 2024-12-20 | ECG_ITS ---
Test Reason : med clearance Blood Pressure : */* mmHG Vent. Rate : 71 BPM Atrial Rate : 71 BPM P-R Int : 144 ms QRS Dur : 98 ms QT Int : 368 ms P-R-T Axes : 65 59 58 degrees QTcB Int : 399 ms Normal sinus rhythm Normal ECG When compared with ECG of 25-Sep-2024 10:20, No significant change was found Referred By: Rylee Padron Electronically Signed By: PATRICIA MORELAND MD
[2024-12-20 00:24] VITALS: BP 121/79; PULSE 97; RESP 19; TEMP 37.2; O2SAT 94; BMI 38.4
[2024-12-20 00:36] LABS: MANUAL DIFF FLAG NO
[2024-12-20 00:37] LABS: Basophils Percent Auto 0.2 % (0-2); Eosinophils Absolute Auto 0.1 X10*3/uL (0.0-0.4); Eosinophils Percent Auto 0.6 % (0-4); Hematocrit 44.3 % (42.0-52.0); Hemoglobin 15.9 g/dl (14.0-18.0); Imm Gran Abs Auto 0.08 X10*3/uL (0.00-0.03); Imm Gran Pct Auto 0.7 % (0.0-0.4); Lymphocytes Absolute Auto 1.4 X10*3/uL (1.2-4.9); Lymphocytes Percent Auto 12.9 % (20-40); Mean Corpuscular HGB Conc 35.9 g/dl (31.0-36.0); Mean Corpuscular Hemoglobin 31.7 pg (27.0-33.0); Mean Corpuscular Volume 88.2 fL (80.0-98.0); Monocytes Absolute Auto 0.8 X10*3/uL (0.1-1.2); Monocytes Percent Auto 6.9 % (2-11); Neutrophils Absolute Auto 8.6 x10*3/uL (2.0-8.3); Neutrophils Percent Auto 78.7 % (45-73); Platelet Count 243 X10*3/uL (160-400); Red Blood Count 5.02 X10*6/uL (4.60-5.80); Red Cell Distribution Width 12.5 % (11.0-16.0); White Blood Count 10.9 X10*3/uL (4.8-10.8)
--- NOTE | 2024-12-20 00:46 | ED.PSYCH ---
HPI - Psych General Chief Complaint: Psychiatric Symptoms Stated Complaint: SI want's help! Time Seen by Provider: 12/20/24 00:39 Source: patient Mode of arrival: ambulatory Limitations: no limitations History of Present Illness ED Provider: Dr. Rylee Padron HPI Narrative: Patient comes to the emergency room complaining of anxiety, depression, suicidal thoughts with no plan. Patient states that he also wants help with detox for alcohol. Patient denies HI. Patient states that he was recently section 35 and was in an inpatient treatment facility. Patient requesting to be admitted. Related Data Previous Rx's ?Medication ?Instructions ?Recorded amoxicillin 875 mg-potassium 1 tab PO BID #20 tabs 10/13/24 clavulanate 125 mg tablet ibuprofen 600 mg tablet 600 mg PO Q6H PRN fever or pain 10/13/24 #30 tabs acetaminophen 500 mg tablet 500 mg PO Q6H PRN fever or pain 12/04/24 (Tylenol Extra Strength) #14 tabs amoxicillin 875 mg-potassium 1 tab PO BID 7 days #14 tabs 12/04/24 clavulanate 125 mg tablet Allergies Allergy/AdvReac Type Severity Reaction Status Date / Time hydrocodone [From VICODIN] Allergy Mild NAUSEA & Verified 12/20/24 00:25 VOMITING Review of Systems Review of Systems: Constitutional : No Weight loss, No Fever, No Chills, No Night Sweats, No Fatigue, No Malaise ENT/Mouth : No Hearing loss, No Ear Pain, No Nasal Congestion, No Sinus Pain, No Hoarseness, No sore throat, No Rhinorrhea, No Swallowing Difficulty Eyes: No Eye Pain, No Swelling, No Redness, No Foreign Body, No Discharge, No Vision Changes Cardiovascular : No Chest Pain, No SOB, No Dyspnea on Exertion, No Orthopnea, No Edema, No Palpitations Respiratory : No Cough, No Sputum, No Wheezing, No Smoke Exposure, No Dyspnea Gastrointestinal : No Nausea, No Vomiting, No Diarrhea, No Constipation, No abdominal Pain, No Hematochezia, No Melena Genitourinary : no irregular bleeding, No Dysuria, No Urinary Frequency, No Hematuria, No Urinary Incontinence, No Urgency, No Flank Pain, No Urinary Flow Changes, No Hesitancy Musculoskeletal : No joint pain, No Myalgias, No Joint Swelling Skin : No Skin Lesions, No rash Neuro : No Weakness, No Numbness, No Paresthesias, No Loss of Consciousness, No Dizziness, No Headache Psych : Complaining of anxiety, depression, suicidal thoughts with a plan, no HI, admits to polysubstance abuse Heme/Lymph: No Bruising, No Bleeding,No Lymphadenopathy Endocrine : No Polyuria, No Polydipsia, No Temperature Intolerance PMF Past Medical History Medical History (Updated 12/20/24 @ 00:51 by Rylee Padron MD) Suicidal ideation Depression Polysubstance abuse Social History Social History Alcohol intake: current Alcohol intake frequency: holidays/special occasions only Alcohol type: beer, wine and hard liquor Substance Use Type: Crack/Cocaine and Marijuana Advance Directives: No Advance Directives Information Provided: Yes Do you have a plan to hurt others: No Plan Physical Exam Vital Signs: Vital Signs: Last Vital Signs Temp 98.9 F 12/20/24 00:24 Pulse 97 12/20/24 00:24 Resp 19 12/20/24 00:24 BP 121/79 12/20/24 00:24 Pulse Ox 94 12/20/24 00:24 O2 Del Method Room Air 12/20/24 00:24 BMI result Body Mass Index 38.4 Const: Other: Appearance: Alert. Oriented X3. No acute distress. Eyes: Pupils equal, round and reactive to light. ENT: Pharynx normal. Neck: Normal inspection. Neck supple. No lymph nodes noted. No crepitus CVS: Normal heart rate and rhythm. Pulses normal. Normal S1 and S2 Respiratory: No respiratory distress. Breath sounds normal. No Wheezing. No rales Abdomen: Soft and nontender. No rigidity. No distention. Skin: Skin warm and dry. Normal skin color. Normal skin turgor. Extremities: No lower extremity edema. No Lacerations. No Rash Neuro: Oriented X 3. No motor deficit. No sensory deficit. Moving all extremities. No slurred speech. CN 2 through 12 grossly intact Psych: calm, cooperative, anxious Medical Decision Making Medical Decision Making [facility] Narrative: My interpretation of labs: At baseline hematology Chemistry Tachycardic Differential Diagnosis Differential Diagnoses: The differential diagnosis associated with the presentation includes (Anxiety, depression, polysubstance abuse) Admission/Observation Consideration of admission/observation: Escalation of care including admission/observation considered (Patient requesting to be admitted, care team evaluation pending to determine patient's disposition) Lab Data MDM Lab Attestation statement: I reviewed the patient's lab results. 12/20/24 00:30 12/20/24 00:30 Labs: Lab Results 12/20/24 Range/Units 00:30 WBC 10.9 H (4.8-10.8) X10*3/uL RBC 5.02 (4.60-5.80) X10*6/uL Hgb 15.9 (14.0-18.0) g/dl Hct 44.3 (42.0-52.0) % MCV 88.2 (80.0-98.0) fL MCH 31.7 (27.0-33.0) pg MCHC 35.9 (31.0-36.0) g/dl RDW 12.5 (11.0-16.0) % Plt Count 243 (160-400) X10*3/uL MPV 10.0 (9.4-12.4) fL Immature Gran % (Auto) 0.7 H (0.0-0.4) % Neut % (Auto) 78.7 H (45-73) % Lymph % (Auto) 12.9 L (20-40) % Coffey % (Auto) 6.9 (2-11) % Eos % (Auto) 0.6 (0-4) % Baso % (Auto) 0.2 (0-2) % Lymph # (Auto) 1.4 (1.2-4.9) X10*3/uL Coffey # (Auto) 0.8 (0.1-1.2) X10*3/uL Eos # (Auto) 0.1 (0.0-0.4) X10*3/uL Baso # (Auto) 0.0 (0.0-0.2) X10*3/uL Abs Immat Gran (auto) 0.08 H (0.00-0.03) X10*3/uL Absolute Neuts (auto) 8.6 H (2.0-8.3) x10*3/uL Absolute Nucleated RBC 0.000 (0.0-0.012) X10*3/uL Nucleated RBC % (auto) 0.0 (0.0-0.2) /100WBC Critical Care Time Critical Care Time Critical Care Time: Yes Total Critical Care Time: 35 Attestation: I have personally provided critical care time. Time includes review of lab data, radiology results, discussion with consultants, and monitoring for potential decompensation. Intervention performed as documented. Discharge Plan Discharge Clinical Impression: Suicidal ideation, Polysubstance abuse Patient Disposition: Still a Patient Prescriptions: No Action acetaminophen [Tylenol Extra Strength] 500 mg tablet 500 mg PO Q6H PRN (Reason: fever or pain) Qty: 14 0RF amoxicillin-pot clavulanate 875-125 mg tablet 1 tab PO BID 7 Days Qty: 14 0RF amoxicillin-pot clavulanate 875-125 mg tablet 1 tab PO BID Qty: 20 0RF ibuprofen 600 mg tablet 600 mg PO Q6H PRN (Reason: fever or pain) Qty: 30 0RF Print Language: Kittitian
[2024-12-20 00:50] LABS: Acetaminophen LAB < 3 mcg/mL (<30); Salicylate < 5.0 mg/dL (15-30)
[2024-12-20 00:56] LABS: Alkaline Phosphatase 87 U/L (39-117)
[2024-12-20 00:57] LABS: Alanine Aminotransferase 25 U/L (0-40); Albumin Level 4.4 g/dL (3.5-5.0); Anion Gap 15 (12-20); Aspartate Amino Transferase 26 U/L (5-37); Bilirubin Total 0.4 mg/dL (0.0-1.0); Blood Urea Nitrogen 18 mg/dL (9-16); Calcium 9.6 mg/dL (8.4-10.2); Carbon Dioxide 22 mmol/L (22-29); Chloride 105 mmol/L (96-108); Creatinine Clr Calc Pharmacy 123.2; Estimated Glomerular Filt Rate > 60; Ethanol < 10 mg/dL; Glucose Random 105 mg/dL (60-115); Potassium 4.1 mmol/L (3.3-5.1); Sodium 138 mmol/L (135-145); Total Protein 8.3 g/dL (6.5-8.0)
[2024-12-20] MEDS: LORazepam 1 MG TABLET 2 MG PO (00:57)
[2024-12-20 01:05] LABS: Amphetamine Screen Urine Not Detected (Not Detect); Barbiturates, Urine Not Detected (Not Detect); Benzodiazepines Screen Urine Not Detected (Not Detect); Buprenorphine Scr Not Detected (Not Detect); Cannabinoid Screen Urine POSITIVE (Not Detect); Cocaine Screen Urine POSITIVE (Not Detect); Fentanyl, urine Not Detected (Not Detect); Methadone Screen, Urine Not Detected (Not Detect); Opiate Screen Urine Not Detected (Not Detect); Oxycodone Screen Urine Not Detected (Not Detect); Phencyclidine Screen Urine Not Detected (Not Detect)
[2024-12-20 06:21] VITALS: BP 130/78; PULSE 82; RESP 18; TEMP 37.1; O2SAT 97
[2024-12-20 08:21] LABS: Appearance Urine Clear; Color Urine Yellow; Glucose Urine UA Negative (Negative); Leukocyte Esterase Urine Negative (Negative); Nitrite Urine Negative (Negative); PH 5.5 (5.0-9.0); Specific Gravity - Urine 1.025 (1.005-1.025); Urine Blood Negative (Negative); Urine Ketones Negative (Negative); Urine Protein Trace mg/dL (Neg-Trace)
[2024-12-20] MEDS: LORazepam 1 MG TABLET PO (11:11)
--- NOTE | 2024-12-20 11:11 | PC.NURSE ---
pt verbalizing increase in anxiety - provider notified/aware. medication administered per provider order. effectiveness pending.
--- NOTE | 2024-12-20 13:00 | PHA.MEDREC ---
Pharmacy Consult ? Medication Reconciliation Pharmacy has reviewed the medication reconciliation completed by Nursing. Pt is not on any meds.
[2024-12-20 14:09] VITALS: BMI 39.7
[2024-12-20 14:11] VITALS: BP 131/71; PULSE 80; RESP 20; TEMP 36.8; O2SAT 95
[2024-12-20] MEDS: Nicotine 21 MG PATCH.TD24 TRANSDERMA (14:56)
[2024-12-20] MEDS: Nicotine Polacrilex Lozenge 4 MG LOZENGE BUCCAL ×2 (14:56→21:13)
[2024-12-20 15:21] VITALS: BP 133/70
[2024-12-20] MEDS: cloNIDine HCL 0.1 MG TABLET PO (15:21)
[2024-12-20 17:08] VITALS: BP 128/74; PULSE 86
[2024-12-20] MEDS: Propranolol HCL 10 MG TABLET PO (17:08)
[2024-12-20] MEDS: Gabapentin 300 MG CAPSULE PO ×2 (17:08→21:08)
--- NOTE | 2024-12-20 18:46 | PC.ADMIT ---
Maisha is a 39 yr old male admitted to today on a CV. Patient presented to the ED c/o of anxiety, depression & suicidal thoughts with no plan.? Patient states that he also wants help with detox. He reports recently being inpatient for section 35.? He has relapsed since.? UTOX is positive for marijuana & cocaine.? Pt endorsed SI, stating he needs help because his depression is getting worse. Maisha is able to contract for safety at this time. Pt is alert and oriented X4, pleasant & cooperative with good eye contact. He denies HI/AVH & denies trauma history.? Skin check done & unremarkable. Maisha states that he currently lives with his mother & stepfather.? He has a girlfriend & signed just one release for his girlfriend. He is motivated to stabilize on meds, establish providers & maintain sobriety on discharge.? We reviewed his previously rx?d medications. He states no meds taken for ?few weeks?.? List reviewed with Dr Mathew & orders entered.? Provider to follow for appropriate med changes.? Maisha was oriented to the unit & placed on 15min safety checks. He has pleasantly settled in on the unit & is social with peers.
[2024-12-20 20:00] VITALS: BP 139/64; PULSE 79; RESP 16; TEMP 36.7; O2SAT 98
[2024-12-20] MEDS: cloNIDine HCL 0.1 MG TABLET 0.05 MG PO (21:09)
[2024-12-20] MEDS: hydrOXYzine HCL 25 MG TABLET PO (21:09)
[2024-12-21 08:00] VITALS: BP 135/91; PULSE 72; TEMP 36.6; O2SAT 98
[2024-12-21] MEDS: Nicotine 21 MG PATCH.TD24 TRANSDERMA (08:57)
[2024-12-21] MEDS: Nicotine Polacrilex Lozenge 4 MG LOZENGE BUCCAL (08:57)
[2024-12-21] MEDS: Gabapentin 300 MG CAPSULE PO ×3 (08:57→21:19)
[2024-12-21] MEDS: Escitalopram Oxalate 10 MG TABLET PO (08:57)
[2024-12-21 09:08] LABS: Estimated Average Glucose 103 mg/dL; Hemoglobin A1c % 5.2 % (<6.0)
[2024-12-21 09:09] LABS: Cholesterol 188 mg/dL (<200); HDL Cholesterol 50 mg/dL (>40); LDL Cholesterol Calculated 100 mg/dL (<100); Magnesium 2.2 mg/dL (1.6-2.6); Triglycerides 194 mg/dL (<150)
[2024-12-21 09:26] LABS: Free T4 (Free Thyroxine) 0.86 ng/dL (0.71-1.85); Thyroid Stimulating Hormone 4.64 uIU/mL (0.32-4.0)
[2024-12-21 09:39] LABS: Folate 9.7 ng/mL (> or = 4.0); Vitamin B12 377 pg/mL (200-900)
--- NOTE | 2024-12-21 09:49 | P.HPPS_ITS ---
HPI Date of Service: 12/21/24 Chief Complaint: depression, SI, polysubstance use disorder Sources of Information: patient interviewed, chart reviewed and crisis/core team assessment reviewed HPI Subjective Notes: Hill Warning and Conditional Voluntary Narrative: Patient is a 39-year-old male with history of depression, anxiety, cocaine heroin abuse who self presents for worsening depression with passive SI in the face of being off medications for several weeks and relapsed with crack cocaine. Patient discharged from section 35 (self-imposed) about 3 weeks ago. He says at the Section 35 he was not getting all of his medications including gabapentin and clonazepam and has been without them for the past 3 weeks. He reports that he relapsed on crack cocaine saying he continues to find it very hard to stop. Patient started getting depressed. He had some fleeting passive suicidal thoughts but no plans or intention and self presents to help with medication management. Denies any history of trauma; denies recent history of alcohol intake; denies any history of manic type episodes or behaviors or AVH. pt seen 10:30am on 12/21/24 Past Psychiatric History: Self-initiated Section 35 x2 Past med trials but patient does not remember 1 past psychiatric admission Medical Evaluation Reviewed: Yes [facility] Medical History (Updated 12/21/24 @ 17:14 by Edin Mathew MD) Panic attack Opioid use disorder Cocaine use disorder MDD (major depressive disorder), recurrent severe, without psychosis Suicidal ideation Depression Polysubstance abuse Family History: Deferred Social History: Currently lives with with family and supportive girlfriend Substance History: Crack cocaine heroin use disorder Trauma History: Deny Diagnostics Vital Signs (24Hr): Vital Signs - 24 hr 12/20/24 14:11 12/20/24 15:21 12/20/24 17:08 Temperature 98.3 F Pulse Rate 80 86 Respiratory Rate 20 Blood Pressure 131/71 133/70 128/74 Pulse Oximetry 95 Oxygen Delivery Method Room Air 12/20/24 20:00 Temperature 98.1 F Pulse Rate 79 Respiratory Rate 16 Blood Pressure 139/64 Pulse Oximetry 98 Oxygen Delivery Method Room Air BMI result Body Mass Index 39.7 Labs 12/20/24 00:30 12/20/24 00:30 Labs: Laboratory Results - last 48 hr 12/20/24 12/20/24 12/21/24 00:30 00:48 07:49 WBC 10.9 H RBC 5.02 Hgb 15.9 Hct 44.3 MCV 88.2 MCH 31.7 MCHC 35.9 RDW 12.5 Plt Count 243 MPV 10.0 Immature Gran % (Auto) 0.7 H Neut % (Auto) 78.7 H Lymph % (Auto) 12.9 L Rabun % (Auto) 6.9 Eos % (Auto) 0.6 Baso % (Auto) 0.2 Lymph # (Auto) 1.4 Rabun # (Auto) 0.8 Eos # (Auto) 0.1 Baso # (Auto) 0.0 Abs Immat Gran (auto) 0.08 H Absolute Neuts (auto) 8.6 H Absolute Nucleated RBC 0.000 Nucleated RBC % (auto) 0.0 Sodium 138 Potassium 4.1 Chloride 105 Carbon Dioxide 22 Anion Gap 15 BUN 18 H Creatinine 1.02 Estim Creat Clear Calc 123.2 Estimated GFR > 60 Random Glucose 105 Estimat Average Glucose 103 Hemoglobin A1c % 5.2 Calcium 9.6 Magnesium 2.2 Total Bilirubin 0.4 AST 26 ALT 25 Alkaline Phosphatase 87 Total Protein 8.3 H Albumin 4.4 Triglycerides 194 H Cholesterol 188 LDL Cholesterol, Calc 100 H HDL Cholesterol 50 Vitamin B12 377 Folate 9.7 TSH 4.64 H Free T4 0.86 Urine Color Yellow Urine Appearance Clear Urine pH 5.5 Ur Specific Redby 1.025 Urine Protein Trace Urine Glucose (UA) Negative Urine Ketones Negative Urine Blood Negative Urine Nitrite Negative Ur Leukocyte Esterase Negative Salicylates < 5.0 L Urine Opiates Screen Not Detected Ur Buprenorphine Scrn Not Detected Ur Oxycodone Screen Not Detected Urine Methadone Screen Not Detected Urine Fentanyl Screen Not Detected Acetaminophen < 3 Ur Barbiturates Screen Not Detected Ur Phencyclidine Scrn Not Detected Ur Amphetamines Screen Not Detected U Benzodiazepines Scrn Not Detected Urine Cocaine Screen POSITIVE H U Marijuana (THC) Screen POSITIVE H Ethyl Alcohol < 10 Meds/Allergies Meds Home Medications ?Medication ?Instructions ?Recorded ?Confirmed ?Type buspirone 15 mg tablet 15 mg TID 12/20/24 12/20/24 History escitalopram oxalate 10 mg tablet 10 mg PO QAM 12/20/24 12/20/24 History gabapentin 400 mg capsule 400 mg TID 12/20/24 12/20/24 History Allergies Allergies Allergy/AdvReac Type Severity Reaction Status Date / Time hydrocodone [From VICODIN] Allergy Mild NAUSEA & Verified 12/20/24 00:25 VOMITING Mental Status Exam Mental Status Exam Narrative: Pt is alert and oriented; behavior is cooperative, anxious; patient is not in distress; dressed in casual attire with unkempt hair, scruffy, heavily tattooed arms and neck; adequate hygiene; mood is described as anxious and affect congruent; eye contact appropriate; Speech is verbose a little fast; normal volume and prosody; some psychomotor agitation present; thought process is organized and goal directed; Thought content is on tx; otherwise pertinent to relevant topics and without any delusional content, paranoid ideations or grandiosity; denies any SI/HI. Denies AVH and there is no evidence of perceptual disturbance. Patients insight and judgment impaired. Assessment & Plan Assessment & Plan (1) MDD (major depressive disorder), recurrent severe, without psychosis: Status: Acute Code(s): F33.2 - Major depressive disorder, recurrent severe without psychotic features (2) Cocaine use disorder: Status: Acute Code(s): F14.10 - Cocaine abuse, uncomplicated (3) Opioid use disorder: Status: Acute Code(s): F11.90 - Opioid use, unspecified, uncomplicated (4) Panic attack: Status: Acute Code(s): F41.0 - Panic disorder [episodic paroxysmal anxiety] Plan Patient is a 39-year-old male with history of depression, anxiety, cocaine heroin abuse who self presents for worsening depression with passive SI in the face of being off medications for several weeks and relapsed with crack cocaine. Patient discharged from section 35 (self-imposed) about 3 weeks ago. He says at the Section 35 he was not getting all of his medications including gabapentin and clonazepam and has been without them for the past 3 weeks. He reports that he relapsed on crack cocaine saying he continues to find it very hard to stop. Patient started getting depressed. He had some fleeting passive suicidal thoughts but no plans or intention and self presents to help with medication management. Denies any history of trauma; denies recent history of alcohol intake; denies any history of manic type episodes or behaviors or AVH. Formulation/clinical reasoning: Patient has history of depression obviously worsened by ongoing substance use disorder. Patient says that on Lexapro, BuSpar, gabapentin and clonazepam overall does well. Has panic attacks at least 2 to 3 times a week for which he uses clonazepam. Patient asking for help for substance use and wants a program. Does not want MAT. Discussed keeping Lexapro 20 mg, which was increased during recent Section 35, since he has ongoing anxiety. Plan: CV Q 15 minute checks Continue Lexapro 20 mg; increased a few weeks ago Continue BuSpar 15 mg t.i.d. Continue propranolol 10 mg at 16:00 daily Continue melatonin Continue baclofen 10 mg at noon and bedtime for chronic back pain Will restart clonazepam 0.5 mg daily p.r.n. for panic; patient has been prescribed this in the past and it is reasonable for panic attacks. Discussed elevated cholesterol, TAG; patient would like to use diet and exercise for now as treatment Patient educated on: diagnosis, medication risk/benefits, substance abuse, therapeutic strategies and medical condition Informed Consent: understands Reason for continued inpatient stay Substantial Risk for: rapid decompensation Statement Statement: I have reviewed the history and physical and performed a pertinent examination on my patient. No changes have occurred unless specified. If the History and Physical was not performed prior to admission, the Hospitalist's service will be consulted for completing the admission physical. Time Spent With Patient Time: Total time managing care of this patient today ____ minutes.
[2024-12-21] MEDS: Baclofen 10 MG TABLET PO ×2 (12:19→21:19)
[2024-12-21] MEDS: busPIRone HCl 5 MG TABLET 15 MG PO ×3 (12:19→21:19)
[2024-12-21] MEDS: clonazePAM 0.5 MG TABLET PO (13:30)
[2024-12-21 15:11] VITALS: BP 130/72; PULSE 89
[2024-12-21] MEDS: Propranolol HCL 10 MG TABLET PO (16:10)
[2024-12-21 20:00] VITALS: BP 139/81; PULSE 98; TEMP 36.4; O2SAT 96
[2024-12-21] MEDS: Melatonin 3 MG TABLET 6 MG PO (21:19)
[2024-12-21] MEDS: OLANZapine 5 MG TABLET PO (21:19)
[2024-12-22 08:00] VITALS: BP 109/60; PULSE 62; RESP 20; TEMP 36.6; O2SAT 97
--- NOTE | 2024-12-22 10:03 | HO.PSYCHPN ---
Subjective Subjective Date of Service: 12/22/24 Reason For Visit: depression, SI, polysubstance use disorder Interim History: met with patient; discussed with team pt reports he's overall feeling better though still struggling with anxiety. Last night, patient provoked by a peer but able to removed himself and feels that being back on home meds has helped. Discussed substance abuse and pt wants to get back in to AA/NA; discussed getting a sponsor. Otherwise does not want MAT and Baclofen does not help w/ his cravings. PT wants IOP and a therapist. Diagnostics Vital Signs (24Hr): Vital Signs - 24 hr 12/21/24 15:11 12/21/24 20:00 12/22/24 08:00 Temperature 97.5 F 97.8 F Pulse Rate 89 98 62 Respiratory Rate 20 Blood Pressure 130/72 139/81 109/60 Pulse Oximetry 96 97 Oxygen Delivery Method Room Air Room Air BMI result Body Mass Index 39.7 Labs 12/20/24 00:30 12/20/24 00:30 Labs: Laboratory Results - last 48 hr 12/21/24 07:49 Estimat Average Glucose 103 Hemoglobin A1c % 5.2 Magnesium 2.2 Triglycerides 194 H Cholesterol 188 LDL Cholesterol, Calc 100 H HDL Cholesterol 50 Vitamin B12 377 Folate 9.7 TSH 4.64 H Free T4 0.86 Medications Medications Current Medications Acetaminophen (Acetaminophen 325 Mg Tablet) 650 mg PO Q6H PRN PRN Reason: Headache/Pain, Scale 1-10 Al Hydroxide/Mg Hydroxide (Magnesium Hydrox/Alum Hydrox 30 Ml Oral.Susp) 30 ml PO Q6H PRN PRN Reason: Heartburn/Nausea Baclofen (Baclofen 10 Mg Tablet) 10 mg PO BID@1200,2000 [facility] Last Admin: 12/21/24 21:19 Dose: 10 mg Buspirone HCl (Buspirone Hcl 5 Mg Tablet) 15 mg PO TID [facility] Last Admin: 12/21/24 21:19 Dose: 15 mg Clonazepam (Clonazepam 0.5 Mg Tablet) 0.5 mg PO DAILY PRN PRN Reason: severe anxiety/panic Last Admin: 12/21/24 13:30 Dose: 0.5 mg Escitalopram Oxalate (Escitalopram Oxalate 20 Mg Tablet) 20 mg PO DAILY [facility] Gabapentin (Gabapentin 300 Mg Capsule) 300 mg PO TID [facility] Last Admin: 12/21/24 21:19 Dose: 300 mg Magnesium Hydroxide (Milk Of Magnesia 30 Ml Oral.Susp) 30 ml PO DAILY PRN PRN Reason: Constipation Melatonin (Melatonin 3 Mg Tablet) 6 mg PO BEDTIME [facility] Last Admin: 12/21/24 21:19 Dose: 6 mg Nicotine (Nicotine 21 Mg Patch.Td24) 21 mg TRANSDERMA DAILY PRN PRN Reason: nicotine craving Last Admin: 12/21/24 08:57 Dose: 21 mg Nicotine Polacrilex (Nicotine Polacrilex Lozenge 4 Mg Lozenge) 4 mg BUCCAL Q2H PRN PRN Reason: Nicotine Cravings Last Admin: 12/21/24 08:57 Dose: 4 mg Olanzapine (Olanzapine 5 Mg Tablet) 5 mg PO TID PRN PRN Reason: agitation Last Admin: 12/21/24 21:19 Dose: 5 mg Propranolol HCl (Propranolol Hcl 10 Mg Tablet) 10 mg PO DAILY@1600 [facility]; Protocol Last Admin: 12/21/24 16:10 Dose: 10 mg Allergies Allergies Allergy/AdvReac Type Severity Reaction Status Date / Time hydrocodone [From VICODIN] Allergy Mild NAUSEA & Verified 12/20/24 00:25 VOMITING Assessment & Plan Assessment & Plan (1) MDD (major depressive disorder), recurrent severe, without psychosis: Status: Acute Code(s): F33.2 - Major depressive disorder, recurrent severe without psychotic features (2) Cocaine use disorder: Status: Acute Code(s): F14.10 - Cocaine abuse, uncomplicated (3) Opioid use disorder: Status: Acute Code(s): F11.90 - Opioid use, unspecified, uncomplicated (4) Panic attack: Status: Acute Code(s): F41.0 - Panic disorder [episodic paroxysmal anxiety] Plan Patient is a 39-year-old male with history of depression, anxiety, cocaine heroin abuse who self presents for worsening depression with passive SI in the face of being off medications for several weeks and relapsed with crack cocaine. Patient [place] about 3 weeks ago. He says at the [place] 35 he was not getting all of his medications including gabapentin and clonazepam and has been without them for the past 3 weeks. He reports that he relapsed on crack cocaine saying he continues to find it very hard to stop. Patient started getting depressed. He had some fleeting passive suicidal thoughts but no plans or intention and self presents to help with medication management. Denies any history of trauma; denies recent history of alcohol intake; denies any history of manic type episodes or behaviors or AVH. Formulation/clinical reasoning: Patient has history of depression obviously worsened by ongoing substance use disorder. Patient says that on Lexapro, BuSpar, gabapentin and clonazepam overall does well. Has panic attacks at least 2 to 3 times a week for which he uses clonazepam. Patient asking for help for substance use and wants a program. Does not want MAT. Discussed keeping Lexapro 20 mg, which was increased during recent [place] 35, since he has ongoing anxiety. Hospital course: 3/ pt reports he's overall feeling better though still struggling with anxiety. Last night, patient provoked by a peer but able to removed himself and feels that being back on home meds has helped. Discussed substance abuse and pt wants to get back in to AA/NA; discussed getting a sponsor. Otherwise does not want MAT and Baclofen does not help w/ his cravings. PT wants IOP and a therapist. Plan: CV Q 15 minute checks Continue Lexapro 20 mg; increased a few weeks ago Continue BuSpar 15 mg t.i.d. Continue propranolol 10 mg at 16:00 daily Continue melatonin Continue baclofen 10 mg at noon and bedtime for chronic back pain Will restart clonazepam 0.5 mg daily p.r.n. for panic; patient has been prescribed this in the past and it is reasonable for panic attacks. Discussed elevated cholesterol, TAG; patient would like to use diet and exercise for now as treatment Patient educated on: diagnosis, medication risk/benefits, substance abuse and therapeutic strategies Informed Consent: understands Reason for continued inpatient stay Substantial Risk for: stable for discharge and rapid decompensation Time Spent With Patient Time: Total time managing care of this patient today ____ minutes.
[2024-12-22] MEDS: Escitalopram Oxalate 20 MG TABLET PO (10:24)
[2024-12-22] MEDS: busPIRone HCl 5 MG TABLET 15 MG PO ×3 (10:24→20:57)
[2024-12-22] MEDS: Gabapentin 300 MG CAPSULE PO ×3 (10:25→20:56)
[2024-12-22] MEDS: Nicotine 21 MG PATCH.TD24 TRANSDERMA (10:25)
[2024-12-22] MEDS: Baclofen 10 MG TABLET PO ×2 (11:11→20:58)
[2024-12-22] MEDS: clonazePAM 0.5 MG TABLET PO (14:38)
[2024-12-22 15:04] VITALS: BMI 41.9
[2024-12-22 16:04] VITALS: BP 122/77; PULSE 113; RESP 20
[2024-12-22] MEDS: Propranolol HCL 10 MG TABLET PO (16:05)
[2024-12-22 20:00] VITALS: BP 132/78; PULSE 94; TEMP 36.6; O2SAT 96
[2024-12-22] MEDS: OLANZapine 5 MG TABLET PO (20:56)
[2024-12-22] MEDS: Melatonin 3 MG TABLET 6 MG PO (20:58)
[2024-12-23 08:00] VITALS: BP 151/90; PULSE 76; RESP 16; TEMP 36.4; O2SAT 96
[2024-12-23] MEDS: Escitalopram Oxalate 20 MG TABLET PO (08:50)
[2024-12-23] MEDS: Gabapentin 300 MG CAPSULE PO ×3 (08:50→20:14)
[2024-12-23] MEDS: busPIRone HCl 5 MG TABLET 15 MG PO ×3 (08:50→20:14)
[2024-12-23] MEDS: Nicotine 21 MG PATCH.TD24 TRANSDERMA (08:52)
--- NOTE | 2024-12-23 10:16 | P.PNPSI_ITS ---
Subjective Subjective Date of Service: 12/23/24 Reason For Visit: depression, SI, polysubstance use disorder Interim History: met with patient; discussed with team good mood and feeling optimistic; discussed substance abuse treatment, IOP, AA/NA. Feels meds are working well. Mental Status Exam Mental Status Exam Narrative: Pt is alert and oriented; behavior is cooperative, anxious; patient is not in distress; dressed in casual attire with unkempt hair, scruffy, heavily tattooed arms and neck; adequate hygiene; mood is described as good and affect congruent, brighter, more calm; eye contact appropriate; Speech is normal volume, rate and prosody; no psychomotor agitation present; thought process is organized and goal directed; Thought content is on tx, aftercare; otherwise pertinent to relevant topics and without any delusional content, paranoid ideations or grandiosity; denies any SI/HI. Denies AVH and there is no evidence of perceptual disturbance. Patients insight and judgment fair.. Diagnostics Vital Signs (24Hr): Vital Signs - 24 hr 12/22/24 16:04 12/22/24 20:00 12/23/24 08:00 Temperature 97.8 F 97.5 F Pulse Rate 113 H 94 76 Respiratory Rate 20 16 Blood Pressure 122/77 132/78 151/90 H Pulse Oximetry 96 96 Oxygen Delivery Method Room Air BMI result Body Mass Index 41.9 Labs 12/20/24 00:30 12/20/24 00:30 Medications Medications Current Medications Acetaminophen (Acetaminophen 325 Mg Tablet) 650 mg PO Q6H PRN PRN Reason: Headache/Pain, Scale 1-10 Al Hydroxide/Mg Hydroxide (Magnesium Hydrox/Alum Hydrox 30 Ml Oral.Susp) 30 ml PO Q6H PRN PRN Reason: Heartburn/Nausea Baclofen (Baclofen 10 Mg Tablet) 10 mg PO BID@1200,2000 [facility] Last Admin: 12/22/24 20:58 Dose: 10 mg Buspirone HCl (Buspirone Hcl 5 Mg Tablet) 15 mg PO TID [facility] Last Admin: 12/23/24 08:50 Dose: 15 mg Clonazepam (Clonazepam 0.5 Mg Tablet) 0.5 mg PO DAILY PRN PRN Reason: severe anxiety/panic Last Admin: 12/22/24 14:38 Dose: 0.5 mg Escitalopram Oxalate (Escitalopram Oxalate 20 Mg Tablet) 20 mg PO DAILY [facility] Last Admin: 12/23/24 08:50 Dose: 20 mg Gabapentin (Gabapentin 300 Mg Capsule) 300 mg PO TID [facility] Last Admin: 12/23/24 08:50 Dose: 300 mg Magnesium Hydroxide (Milk Of Magnesia 30 Ml Oral.Susp) 30 ml PO DAILY PRN PRN Reason: Constipation Melatonin (Melatonin 3 Mg Tablet) 6 mg PO BEDTIME [facility] Last Admin: 12/22/24 20:58 Dose: 6 mg Nicotine (Nicotine 21 Mg Patch.Td24) 21 mg TRANSDERMA DAILY PRN PRN Reason: nicotine craving Last Admin: 12/23/24 08:52 Dose: 21 mg Nicotine Polacrilex (Nicotine Polacrilex Lozenge 4 Mg Lozenge) 4 mg BUCCAL Q2H PRN PRN Reason: Nicotine Cravings Last Admin: 12/21/24 08:57 Dose: 4 mg Olanzapine (Olanzapine 5 Mg Tablet) 5 mg PO TID PRN PRN Reason: agitation Last Admin: 12/22/24 20:56 Dose: 5 mg Propranolol HCl (Propranolol Hcl 10 Mg Tablet) 10 mg PO DAILY@1600 [facility]; Protocol Last Admin: 12/22/24 16:05 Dose: 10 mg Allergies Allergies Allergy/AdvReac Type Severity Reaction Status Date / Time hydrocodone [From VICODIN] Allergy Mild NAUSEA & Verified 12/20/24 00:25 VOMITING Assessment & Plan Assessment & Plan (1) MDD (major depressive disorder), recurrent severe, without psychosis: Status: Acute Code(s): F33.2 - Major depressive disorder, recurrent severe without psychotic features (2) Cocaine use disorder: Status: Acute Code(s): F14.10 - Cocaine abuse, uncomplicated (3) Opioid use disorder: Status: Acute Code(s): F11.90 - Opioid use, unspecified, uncomplicated (4) Panic attack: Status: Acute Code(s): F41.0 - Panic disorder [episodic paroxysmal anxiety] Plan Patient is a 39-year-old male with history of depression, anxiety, cocaine heroin abuse who self presents for worsening depression with passive SI in the face of being off medications for several weeks and relapsed with crack cocaine. Patient discharged from [place] 35 (self-imposed) about 3 weeks ago. He says at the [facility] 35 he was not getting all of his medications including gabapentin and clonazepam and has been without them for the past 3 weeks. He reports that he relapsed on crack cocaine saying he continues to find it very hard to stop. Patient started getting depressed. He had some fleeting passive suicidal thoughts but no plans or intention and self presents to help with medication management. Denies any history of trauma; denies recent history of alcohol intake; denies any history of manic type episodes or behaviors or AVH. Formulation/clinical reasoning: Patient has history of depression obviously worsened by ongoing substance use disorder. Patient says that on Lexapro, BuSpar, gabapentin and clonazepam overall does well. Has panic attacks at least 2 to 3 times a week for which he uses clonazepam. Patient asking for help for substance use and wants a program. Does not want MAT. Discussed keeping Lexapro 20 mg, which was increased during recent [facility] 35, since he has ongoing anxiety. Hospital course: 12/22 pt reports he's overall feeling better though still struggling with anxiety. Last night, patient provoked by a peer but able to removed himself and feels that being back on home meds has helped. Discussed substance abuse and pt wants to get back in to AA/NA; discussed getting a sponsor. Otherwise does not want MAT and Baclofen does not help w/ his cravings. PT wants IOP and a therapist. 12/23 good mood and feeling optimistic; discussed substance abuse treatment and pt talked again about IOP and plans to get back in to AA/NA and get a sponsor. Feels meds are working well. Plan: CV Q 15 minute checks Continue Lexapro 20 mg; increased a few weeks ago Continue BuSpar 15 mg t.i.d. Continue propranolol 10 mg at 16:00 daily Continue melatonin Continue baclofen 10 mg at noon and bedtime for chronic back pain Will restart clonazepam 0.5 mg daily p.r.n. for panic; patient has been prescribed this in the past and it is reasonable for panic attacks. Discussed elevated cholesterol, TAG; patient would like to use diet and exercise for now as treatment Patient educated on: diagnosis, medication risk/benefits and substance abuse Informed Consent: understands Reason for continued inpatient stay Substantial Risk for: stable for discharge Time Spent With Patient Time: Total time managing care of this patient today ____ minutes.
[2024-12-23] MEDS: Baclofen 10 MG TABLET PO ×2 (11:24→20:14)
[2024-12-23] MEDS: OLANZapine 5 MG TABLET PO (11:25)
[2024-12-23 16:15] VITALS: BP 142/80; PULSE 76
[2024-12-23] MEDS: Propranolol HCL 10 MG TABLET PO (16:15)
[2024-12-23] MEDS: Magnesium Hydrox/Alum Hydrox 30 ML ORAL.SUSP PO (16:19)
[2024-12-23 20:00] VITALS: BP 139/85; PULSE 83; RESP 16; TEMP 37.1; O2SAT 96
[2024-12-23] MEDS: clonazePAM 0.5 MG TABLET PO (20:13)
[2024-12-23] MEDS: Melatonin 3 MG TABLET 6 MG PO (20:14)
[2024-12-24] MEDS: Acetaminophen 325 MG TABLET 650 MG PO (08:46)
[2024-12-24] MEDS: Gabapentin 300 MG CAPSULE PO ×3 (08:46→20:28)
[2024-12-24] MEDS: Escitalopram Oxalate 20 MG TABLET PO (08:47)
[2024-12-24] MEDS: busPIRone HCl 5 MG TABLET 15 MG PO ×3 (08:47→20:28)
--- NOTE | 2024-12-24 11:05 | HO.PSYCHPN ---
Subjective Subjective Date of Service: 12/24/24 Reason For Visit: depression, SI, polysubstance use disorder Subjective Notes: Conditional Voluntary Interim History: Patient was seen and discussed in rounds today. Records and plans were reviewed. He is doing well, is social and interactive. Some mood lability. Looking forward to discharge early next week. Eating and sleeping adequately. No changes were made today Review of Systems Review of Systems Yes all other systems are reviewed and are negative Mental Status Exam Mental Status Exam Narrative: in today's visit he is alert, oriented and pleasant. Normal speech. Good eye contact. Affect is appropriate and varied. No signs of psychosis. No AVH. No SI. Cognitively intact. Judgment is intact. He moves all limbs. Diagnostics Vital Signs (24Hr): Vital Signs - 24 hr 12/23/24 16:15 12/23/24 20:00 Temperature 98.7 F Pulse Rate 76 83 Respiratory Rate 16 Blood Pressure 142/80 H 139/85 Pulse Oximetry 96 Oxygen Delivery Method Room Air BMI result Body Mass Index 41.9 Labs 12/20/24 00:30 12/20/24 00:30 Medications Medications Current Medications Acetaminophen (Acetaminophen 325 Mg Tablet) 650 mg PO Q6H PRN PRN Reason: Headache/Pain, Scale 1-10 Last Admin: 12/24/24 08:46 Dose: 650 mg Al Hydroxide/Mg Hydroxide (Magnesium Hydrox/Alum Hydrox 30 Ml Oral.Susp) 30 ml PO Q6H PRN PRN Reason: Heartburn/Nausea Last Admin: 12/23/24 16:19 Dose: 30 ml Baclofen (Baclofen 10 Mg Tablet) 10 mg PO BID@1200,2000 [facility] Last Admin: 12/23/24 20:14 Dose: 10 mg Buspirone HCl (Buspirone Hcl 5 Mg Tablet) 15 mg PO TID [facility] Last Admin: 12/24/24 08:47 Dose: 15 mg Clonazepam (Clonazepam 0.5 Mg Tablet) 0.5 mg PO DAILY PRN PRN Reason: severe anxiety/panic Last Admin: 12/23/24 20:13 Dose: 0.5 mg Escitalopram Oxalate (Escitalopram Oxalate 20 Mg Tablet) 20 mg PO DAILY [facility] Last Admin: 12/24/24 08:47 Dose: 20 mg Gabapentin (Gabapentin 300 Mg Capsule) 300 mg PO TID [facility] Last Admin: 12/24/24 08:46 Dose: 300 mg Magnesium Hydroxide (Milk Of Magnesia 30 Ml Oral.Susp) 30 ml PO DAILY PRN PRN Reason: Constipation Melatonin (Melatonin 3 Mg Tablet) 6 mg PO BEDTIME [facility] Last Admin: 12/23/24 20:14 Dose: 6 mg Nicotine (Nicotine 21 Mg Patch.Td24) 21 mg TRANSDERMA DAILY PRN PRN Reason: nicotine craving Last Admin: 12/23/24 08:52 Dose: 21 mg Nicotine Polacrilex (Nicotine Polacrilex Lozenge 4 Mg Lozenge) 4 mg BUCCAL Q2H PRN PRN Reason: Nicotine Cravings Last Admin: 12/21/24 08:57 Dose: 4 mg Olanzapine (Olanzapine 5 Mg Tablet) 5 mg PO TID PRN PRN Reason: agitation Last Admin: 12/23/24 11:25 Dose: 5 mg Propranolol HCl (Propranolol Hcl 10 Mg Tablet) 10 mg PO DAILY@1600 [facility]; Protocol Last Admin: 12/23/24 16:15 Dose: 10 mg Allergies Allergies Allergy/AdvReac Type Severity Reaction Status Date / Time hydrocodone [From VICODIN] Allergy Mild NAUSEA & Verified 12/20/24 00:25 VOMITING Assessment & Plan Assessment & Plan (1) MDD (major depressive disorder), recurrent severe, without psychosis: Status: Acute Code(s): F33.2 - Major depressive disorder, recurrent severe without psychotic features (2) Cocaine use disorder: Status: Acute Code(s): F14.10 - Cocaine abuse, uncomplicated (3) Opioid use disorder: Status: Acute Code(s): F11.90 - Opioid use, unspecified, uncomplicated (4) Panic attack: Status: Acute Code(s): F41.0 - Panic disorder [episodic paroxysmal anxiety] Plan Patient is a 39-year-old male with history of depression, anxiety, cocaine heroin abuse who self presents for worsening depression with passive SI in the face of being off medications for several weeks and relapsed with crack cocaine. Patient discharged from [place] 35 (self-imposed) about 3 weeks ago. He says at the [facility] 35 he was not getting all of his medications including gabapentin and clonazepam and has been without them for the past 3 weeks. He reports that he relapsed on crack cocaine saying he continues to find it very hard to stop. Patient started getting depressed. He had some fleeting passive suicidal thoughts but no plans or intention and self presents to help with medication management. Denies any history of trauma; denies recent history of alcohol intake; denies any history of manic type episodes or behaviors or AVH. Formulation/clinical reasoning: Patient has history of depression obviously worsened by ongoing substance use disorder. Patient says that on Lexapro, BuSpar, gabapentin and clonazepam overall does well. Has panic attacks at least 2 to 3 times a week for which he uses clonazepam. Patient asking for help for substance use and wants a program. Does not want MAT. Discussed keeping Lexapro 20 mg, which was increased during recent [facility] 35, since he has ongoing anxiety. Hospital course: 12/22 pt reports he's overall feeling better though still struggling with anxiety. Last night, patient provoked by a peer but able to removed himself and feels that being back on home meds has helped. Discussed substance abuse and pt wants to get back in to AA/NA; discussed getting a sponsor. Otherwise does not want MAT and Baclofen does not help w/ his cravings. PT wants IOP and a therapist. 12/23 good mood and feeling optimistic; discussed substance abuse treatment and pt talked again about IOP and plans to get back in to AA/NA and get a sponsor. Feels meds are working well. 12/24/24: Continue current plans and regimen Plan: CV Q 15 minute checks Continue Lexapro 20 mg; increased a few weeks ago Continue BuSpar 15 mg t.i.d. Continue propranolol 10 mg at 16:00 daily Continue melatonin Continue baclofen 10 mg at noon and bedtime for chronic back pain Will restart clonazepam 0.5 mg daily p.r.n. for panic; patient has been prescribed this in the past and it is reasonable for panic attacks. Discussed elevated cholesterol, TAG; patient would like to use diet and exercise for now as treatment Reason for continued inpatient stay Substantial Risk for: stable for discharge and med/psych decompensation Time Spent With Patient Time: Total time managing care of this patient today ____ minutes.
[2024-12-24] MEDS: Nicotine 21 MG PATCH.TD24 TRANSDERMA (11:45)
[2024-12-24] MEDS: Nicotine Polacrilex Lozenge 4 MG LOZENGE BUCCAL (11:46)
[2024-12-24] MEDS: Baclofen 10 MG TABLET PO ×2 (11:46→20:28)
[2024-12-24 13:40] VITALS: BP 147/92; PULSE 102; TEMP 36.3; O2SAT 96
[2024-12-24] MEDS: Propranolol HCL 10 MG TABLET PO (15:03)
[2024-12-24] MEDS: clonazePAM 0.5 MG TABLET PO (18:44)
[2024-12-24] MEDS: OLANZapine 5 MG TABLET PO (18:45)
[2024-12-24 19:45] VITALS: BP 130/74; PULSE 92; RESP 16; TEMP 37; O2SAT 97
[2024-12-24] MEDS: Melatonin 3 MG TABLET 6 MG PO (20:28)
[2024-12-25] MEDS: Acetaminophen 325 MG TABLET 650 MG PO (04:02)
[2024-12-25] MEDS: Nicotine 21 MG PATCH.TD24 TRANSDERMA (08:40)
[2024-12-25] MEDS: busPIRone HCl 5 MG TABLET 15 MG PO ×3 (08:41→20:17)
[2024-12-25] MEDS: Escitalopram Oxalate 20 MG TABLET PO (08:41)
[2024-12-25] MEDS: Gabapentin 300 MG CAPSULE PO ×3 (08:41→20:17)
--- NOTE | 2024-12-25 09:38 | HO.PSYCHPN ---
Subjective Subjective Date of Service: 12/25/24 Reason For Visit: depression, SI, polysubstance use disorder Subjective Notes: Conditional Voluntary Interim History: Patient was seen and discussed in rounds today. Records and plans were reviewed. He has been stable with no behavioral issues. He is med compliant. Attending groups. Depression has decreased. No SI. No complaints or side effects. No changes Medication Compliance: Yes Side effects from medications: No Review of Systems Review of Systems Yes all other systems are reviewed and are negative Mental Status Exam Mental Status Exam Narrative: in today's visit he is alert, oriented and pleasant. Normal speech. Good eye contact. Affect is appropriate and varied. No signs of psychosis. No AVH. No SI. Cognitively intact. Judgment is intact. He moves all limbs. Diagnostics Vital Signs (24Hr): Vital Signs - 24 hr 12/24/24 13:40 12/24/24 19:45 Temperature 97.4 F 98.6 F Pulse Rate 102 H 92 Respiratory Rate 16 Blood Pressure 147/92 H 130/74 Pulse Oximetry 96 97 Oxygen Delivery Method Room Air Room Air BMI result Body Mass Index 41.9 Labs 12/20/24 00:30 12/20/24 00:30 Medications Medications Current Medications Acetaminophen (Acetaminophen 325 Mg Tablet) 650 mg PO Q6H PRN PRN Reason: Headache/Pain, Scale 1-10 Last Admin: 12/25/24 04:02 Dose: 650 mg Al Hydroxide/Mg Hydroxide (Magnesium Hydrox/Alum Hydrox 30 Ml Oral.Susp) 30 ml PO Q6H PRN PRN Reason: Heartburn/Nausea Last Admin: 12/23/24 16:19 Dose: 30 ml Baclofen (Baclofen 10 Mg Tablet) 10 mg PO BID@1200,2000 [facility] [place] Last Admin: 12/24/24 20:28 Dose: 10 mg Buspirone HCl (Buspirone Hcl 5 Mg Tablet) 15 mg PO TID [facility] Last Admin: 12/25/24 08:41 Dose: 15 mg Clonazepam (Clonazepam 0.5 Mg Tablet) 0.5 mg PO DAILY PRN PRN Reason: severe anxiety/panic Last Admin: 12/24/24 18:44 Dose: 0.5 mg Escitalopram Oxalate (Escitalopram Oxalate 20 Mg Tablet) 20 mg PO DAILY [facility] Last Admin: 12/25/24 08:41 Dose: 20 mg Gabapentin (Gabapentin 300 Mg Capsule) 300 mg PO TID [facility] [place] Last Admin: 12/25/24 08:41 Dose: 300 mg Magnesium Hydroxide (Milk Of Magnesia 30 Ml Oral.Susp) 30 ml PO DAILY PRN PRN Reason: Constipation Melatonin (Melatonin 3 Mg Tablet) 6 mg PO BEDTIME [facility] [place] Last Admin: 12/24/24 20:28 Dose: 6 mg Nicotine (Nicotine 21 Mg Patch.Td24) 21 mg TRANSDERMA DAILY PRN PRN Reason: nicotine craving Last Admin: 12/25/24 08:40 Dose: 21 mg Nicotine Polacrilex (Nicotine Polacrilex Lozenge 4 Mg Lozenge) 4 mg BUCCAL Q2H PRN PRN Reason: Nicotine Cravings Last Admin: 12/24/24 11:46 Dose: 4 mg Olanzapine (Olanzapine 5 Mg Tablet) 5 mg PO TID PRN PRN Reason: agitation Last Admin: 12/24/24 18:45 Dose: 5 mg Propranolol HCl (Propranolol Hcl 10 Mg Tablet) 10 mg PO DAILY@1600 LONNIE; Protocol Last Admin: 12/24/24 15:03 Dose: 10 mg Allergies Allergies Allergy/AdvReac Type Severity Reaction Status Date / Time hydrocodone [From VICODIN] Allergy Mild NAUSEA & Verified 12/20/24 00:25 VOMITING Assessment & Plan Assessment & Plan (1) MDD (major depressive disorder), recurrent severe, without psychosis: Status: Acute Code(s): F33.2 - Major depressive disorder, recurrent severe without psychotic features (2) Cocaine use disorder: Status: Acute Code(s): F14.10 - Cocaine abuse, uncomplicated (3) Opioid use disorder: Status: Acute Code(s): F11.90 - Opioid use, unspecified, uncomplicated (4) Panic attack: Status: Acute Code(s): F41.0 - Panic disorder [episodic paroxysmal anxiety] Plan Patient is a 39-year-old male with history of depression, anxiety, cocaine heroin abuse who self presents for worsening depression with passive SI in the face of being off medications for several weeks and relapsed with crack cocaine. Patient discharged from [place] (self-imposed) about 3 weeks ago. He says at the Section 35 he was not getting all of his medications including gabapentin and clonazepam and has been without them for the past 3 weeks. He reports that he relapsed on crack cocaine saying he continues to find it very hard to stop. Patient started getting depressed. He had some fleeting passive suicidal thoughts but no plans or intention and self presents to help with medication management. Denies any history of trauma; denies recent history of alcohol intake; denies any history of manic type episodes or behaviors or AVH. Formulation/clinical reasoning: Patient has history of depression obviously worsened by ongoing substance use disorder. Patient says that on Lexapro, BuSpar, gabapentin and clonazepam overall does well. Has panic attacks at least 2 to 3 times a week for which he uses clonazepam. Patient asking for help for substance use and wants a program. Does not want MAT. Discussed keeping Lexapro 20 mg, which was increased during recent Section 35, since he has ongoing anxiety. Hospital course: 12/22 pt reports he's overall feeling better though still struggling with anxiety. Last night, patient provoked by a peer but able to removed himself and feels that being back on home meds has helped. Discussed substance abuse and pt wants to get back in to AA/NA; discussed getting a sponsor. Otherwise does not want MAT and Baclofen does not help w/ his cravings. PT wants IOP and a therapist. 12/23 good mood and feeling optimistic; discussed substance abuse treatment and pt talked again about IOP and plans to get back in to AA/NA and get a sponsor. Feels meds are working well. 12/24/24: Continue current plans and regimen 12/25: Continue current regimen and plans Plan: CV Q 15 minute checks Continue Lexapro 20 mg; increased a few weeks ago Continue BuSpar 15 mg t.i.d. Continue propranolol 10 mg at 16:00 daily Continue melatonin Continue baclofen 10 mg at noon and bedtime for chronic back pain Will restart clonazepam 0.5 mg daily p.r.n. for panic; patient has been prescribed this in the past and it is reasonable for panic attacks. Discussed elevated cholesterol, TAG; patient would like to use diet and exercise for now as treatment Reason for continued inpatient stay Substantial Risk for: med/psych decompensation Time Spent With Patient Time: Total time managing care of this patient today ____ minutes.
[2024-12-25] MEDS: Baclofen 10 MG TABLET PO ×2 (11:29→20:17)
[2024-12-25] MEDS: clonazePAM 1 MG TABLET PO (11:53)
[2024-12-25 14:40] VITALS: BP 131/77; PULSE 101
[2024-12-25] MEDS: Propranolol HCL 10 MG TABLET PO (14:40)
[2024-12-25 19:39] VITALS: BP 113/75; PULSE 94; RESP 16; TEMP 36.8; O2SAT 96
[2024-12-25] MEDS: Melatonin 3 MG TABLET 6 MG PO (20:17)
[2024-12-25] MEDS: OLANZapine 5 MG TABLET PO (20:17)
[2024-12-25] MEDS: Nicotine Polacrilex Lozenge 4 MG LOZENGE BUCCAL (21:00)
[2024-12-25] MEDS: Magnesium Hydrox/Alum Hydrox 30 ML ORAL.SUSP PO (21:43)
[2024-12-26] MEDS: Acetaminophen 325 MG TABLET 650 MG PO (06:17)
[2024-12-26 08:00] VITALS: BP 144/79; PULSE 71; RESP 20; TEMP 36.5; O2SAT 96
[2024-12-26] MEDS: busPIRone HCl 5 MG TABLET 15 MG PO (08:35)
[2024-12-26] MEDS: Gabapentin 300 MG CAPSULE PO (08:35)
[2024-12-26] MEDS: Escitalopram Oxalate 20 MG TABLET PO (08:36)
--- NOTE | 2024-12-26 10:02 | HO.PSYCHPN ---
Subjective Subjective Date of Service: 12/26/24 Reason For Visit: depression, SI, polysubstance use disorder Interim History: Met with patient; discussed with team; reviewed chart Diagnostics Vital Signs (24Hr): Vital Signs - 24 hr 12/25/24 14:40 12/25/24 19:39 12/26/24 08:00 Temperature 98.2 F 97.7 F Pulse Rate 101 H 94 71 Respiratory Rate 16 20 Blood Pressure 131/77 113/75 144/79 H Pulse Oximetry 96 96 Oxygen Delivery Method Room Air Room Air BMI result Body Mass Index 41.9 Labs 12/20/24 00:30 12/20/24 00:30 Medications Medications Current Medications Acetaminophen (Acetaminophen 325 Mg Tablet) 650 mg PO Q6H PRN PRN Reason: Headache/Pain, Scale 1-10 Last Admin: 12/26/24 06:17 Dose: 650 mg Al Hydroxide/Mg Hydroxide (Magnesium Hydrox/Alum Hydrox 30 Ml Oral.Susp) 30 ml PO Q6H PRN PRN Reason: Heartburn/Nausea Last Admin: 12/25/24 21:43 Dose: 30 ml Baclofen (Baclofen 10 Mg Tablet) 10 mg PO BID@1200,2000 [facility] Last Admin: 12/25/24 20:17 Dose: 10 mg Buspirone HCl (Buspirone Hcl 5 Mg Tablet) 15 mg PO TID [facility] Last Admin: 12/26/24 08:35 Dose: 15 mg Clonazepam (Clonazepam 1 Mg Tablet) 1 mg PO DAILY PRN PRN Reason: severe anxiety/panic Last Admin: 12/25/24 11:53 Dose: 1 mg Escitalopram Oxalate (Escitalopram Oxalate 20 Mg Tablet) 20 mg PO DAILY [facility] Last Admin: 12/26/24 08:36 Dose: 20 mg Gabapentin (Gabapentin 300 Mg Capsule) 300 mg PO TID [facility] Last Admin: 12/26/24 08:35 Dose: 300 mg Magnesium Hydroxide (Milk Of Magnesia 30 Ml Oral.Susp) 30 ml PO DAILY PRN PRN Reason: Constipation Melatonin (Melatonin 3 Mg Tablet) 6 mg PO BEDTIME [facility] Last Admin: 12/25/24 20:17 Dose: 6 mg Nicotine (Nicotine 21 Mg Patch.Td24) 21 mg TRANSDERMA DAILY PRN PRN Reason: nicotine craving Last Admin: 12/25/24 08:40 Dose: 21 mg Nicotine Polacrilex (Nicotine Polacrilex Lozenge 4 Mg Lozenge) 4 mg BUCCAL Q2H PRN PRN Reason: Nicotine Cravings Last Admin: 12/25/24 21:00 Dose: 4 mg Olanzapine (Olanzapine 5 Mg Tablet) 5 mg PO TID PRN PRN Reason: agitation Last Admin: 12/25/24 20:17 Dose: 5 mg Propranolol HCl (Propranolol Hcl 10 Mg Tablet) 10 mg PO DAILY@1600 LONNIE; Protocol Last Admin: 12/25/24 14:40 Dose: 10 mg Allergies Allergies Allergy/AdvReac Type Severity Reaction Status Date / Time hydrocodone [From VICODIN] Allergy Mild NAUSEA & Verified 12/20/24 00:25 VOMITING Assessment & Plan Assessment & Plan (1) MDD (major depressive disorder), recurrent severe, without psychosis: Status: Acute Code(s): F33.2 - Major depressive disorder, recurrent severe without psychotic features (2) Cocaine use disorder: Status: Acute Code(s): F14.10 - Cocaine abuse, uncomplicated (3) Opioid use disorder: Status: Acute Code(s): F11.90 - Opioid use, unspecified, uncomplicated (4) Panic attack: Status: Acute Code(s): F41.0 - Panic disorder [episodic paroxysmal anxiety] Plan Patient is a 39-year-old male with history of depression, anxiety, cocaine heroin abuse who self presents for worsening depression with passive SI in the face of being off medications for several weeks and relapsed with crack cocaine. Patient discharged from section 35 (self-imposed) about 3 weeks ago. He says at the Section 35 he was not getting all of his medications including gabapentin and clonazepam and has been without them for the past 3 weeks. He reports that he relapsed on crack cocaine saying he continues to find it very hard to stop. Patient started getting depressed. He had some fleeting passive suicidal thoughts but no plans or intention and self presents to help with medication management. Denies any history of trauma; denies recent history of alcohol intake; denies any history of manic type episodes or behaviors or AVH. Formulation/clinical reasoning: Patient has history of depression obviously worsened by ongoing substance use disorder. Patient says that on Lexapro, BuSpar, gabapentin and clonazepam overall does well. Has panic attacks at least 2 to 3 times a week for which he uses clonazepam. Patient asking for help for substance use and wants a program. Does not want MAT. Discussed keeping Lexapro 20 mg, which was increased during recent Section 35, since he has ongoing anxiety. Hospital course: 12/22 pt reports he's overall feeling better though still struggling with anxiety. Last night, patient provoked by a peer but able to removed himself and feels that being back on home meds has helped. Discussed substance abuse and pt wants to get back in to AA/NA; discussed getting a sponsor. Otherwise does not want MAT and Baclofen does not help w/ his cravings. PT wants IOP and a therapist. 12/23 good mood and feeling optimistic; discussed substance abuse treatment and pt talked again about IOP and plans to get back in to AA/NA and get a sponsor. Feels meds are working well. 12/24/24: Continue current plans and regimen 12/25: Continue current regimen and plans Plan: CV Q 15 minute checks Continue Lexapro 20 mg; increased a few weeks ago Continue BuSpar 15 mg t.i.d. Continue propranolol 10 mg at 16:00 daily Continue melatonin Continue baclofen 10 mg at noon and bedtime for chronic back pain Will restart clonazepam 0.5 mg daily p.r.n. for panic; patient has been prescribed this in the past and it is reasonable for panic attacks. Discussed elevated cholesterol, TAG; patient would like to use diet and exercise for now as treatment Time Spent With Patient Time: Total time managing care of this patient today ____ minutes.
[2024-12-26] MEDS: clonazePAM 1 MG TABLET PO (10:34)
--- NOTE | 2024-12-26 10:40 | P.DS_ITS ---
DS: Providers Provider Date of Service: 12/26/24 Date of admission: 12/20/24 12:23 Date of discharge: 12/26/24 Primary care physician: Unknown Physician Attending physician on admission: Edin Mathew Attending physician on discharge: Edin Mathew DS: Diagnosis Discharge Diagnosis (1) MDD (major depressive disorder), recurrent severe, without psychosis: Status: Acute (2) Cocaine use disorder: Status: Acute (3) Opioid use disorder: Status: Acute (4) Panic attack: Status: Acute DS: Medications Discharge Medications Home Medications: Previous Rx's ?Medication ?Instructions ?Recorded baclofen 10 mg tablet 10 mg PO BID@1200,2000 30 days #60 12/26/24 tabs buspirone 15 mg tablet 15 mg PO TID 30 days #90 tabs 12/26/24 clonazepam 0.5 mg tablet 0.5 mg PO BEDTIME PRN panic 12/26/24 attack(s) 30 days #30 tabs escitalopram oxalate 20 mg tablet 20 mg PO DAILY 30 days #30 tabs 12/26/24 gabapentin 300 mg capsule 300 mg PO TID 30 days #90 caps 12/26/24 melatonin 3 mg tablet 6 mg (2 x 3 mg) PO BEDTIME 30 days 12/26/24 #60 tabs olanzapine 5 mg tablet 5 mg PO BEDTIME PRN 12/26/24 sleep/agitation 30 days #30 tabs propranolol 10 mg tablet 10 mg PO DAILY@1600 30 days #30 12/26/24 tabs Mental Status Exam Mental Status Exam Narrative: Pt is alert and oriented; behavior is cooperative, friendly, exuberant but in good behavioral and impulse control; patient is not in distress; dressed in casual attire with unkempt hair, tattoos; adequate hygiene and grooming. Mood is described as good and affect congruent, bright; eye contact appropriate; Speech is normal rate, a little loud which is baseline and normal prosody and not pressured; no psychomotor agitation/retardation present; thought process is organized and goal directed; Thought content is on tx; otherwise pertinent to relevant topics and without any delusional content, paranoid ideations or grandiosity; denies any SI/HI. Denies AVH and there is no evidence of perceptual disturbance. Patients insight and judgment fair. Data Data Completed and Pending Completed studies during hospitalization [Text1]: 12/20/24 12/20/2412/21/25 00:30 00:48 07:49 WBC 10.9 H RBC 5.02 Hgb 15.9 Hct 44.3 MCV 88.2 MCH 31.7 MCHC 35.9 RDW 12.5 Plt Count 243 MPV 10.0 Immature Gran % (Auto) 0.7 H Neut % (Auto) 78.7 H Lymph % (Auto) 12.9 L [place] % (Auto) 6.9 Eos % (Auto) 0.6 Baso % (Auto) 0.2 Lymph # (Auto) 1.4 [place] # (Auto) 0.8 Eos # (Auto) 0.1 Baso # (Auto) 0.0 Abs Immat Gran (auto) 0.08 H Absolute Neuts (auto) 8.6 H Absolute Nucleated RBC 0.000 Nucleated RBC % (auto) 0.0 Sodium 138 Potassium 4.1 Chloride 105 Carbon Dioxide 22 Anion Gap 15 BUN 18 H Creatinine 1.02 Estim Creat Clear Calc 123.2 Estimated GFR > 60 Random Glucose 105 Estimat Average Glucose 103 Hemoglobin A1c % 5.2 Calcium 9.6 Magnesium 2.2 Total Bilirubin 0.4 AST 26 ALT 25 Alkaline Phosphatase 87 Total Protein 8.3 H Albumin 4.4 Triglycerides 194 H Cholesterol 188 LDL Cholesterol, Calc 100 H HDL Cholesterol 50 Vitamin B12 377 Folate 9.7 TSH 4.64 H Free T4 0.86 Urine Color Yellow Urine Appearance Clear Urine pH 5.5 Ur Specific [place] 1.025 Urine Protein Trace Urine Glucose (UA) Negative Urine Ketones Negative Urine Blood Negative Urine Nitrite Negative Ur Leukocyte Esterase Negative Salicylates < 5.0 L Urine Opiates Screen Not Detected Ur Buprenorphine Scrn Not Detected Ur Oxycodone Screen Not Detected Urine Methadone Screen Not Detected Urine Fentanyl Screen Not Detected Acetaminophen < 3 Ur Barbiturates Screen Not Detected Ur Phencyclidine Scrn Not Detected Ur Amphetamines Screen Not Detected U Benzodiazepines Scrn Not Detected Urine Cocaine Screen POSITIVE H U Marijuana (THC) Screen POSITIVE H Ethyl Alcohol < 10 DS: Summary Hospital Course Hospital Course: HPI: Patient is a 39-year-old male with history of depression, anxiety, cocaine heroin abuse who self presents for worsening depression with passive SI in the face of being off medications for several weeks and relapsed with crack cocaine. Patient discharged from section 35 (self-imposed) about 3 weeks ago. He says at the Section 35 he was not getting all of his medications including gabapentin and clonazepam and has been without them for the past 3 weeks. He reports that he relapsed on crack cocaine saying he continues to find it very hard to stop. Patient started getting depressed. He had some fleeting passive suicidal thoughts but no plans or intention and self presents to help with medication management. Denies any history of trauma; denies recent history of alcohol intake; denies any history of manic type episodes or behaviors or AVH. Hospital course/Formulation/clinical reasoning: On admission, depression mostly abated though patient continued to have anxiety; SI fully resolved. Patient discussed his history of depression obviously worsened by ongoing substance use disorder. Patient says that on Lexapro, BuSpar, gabapentin and clonazepam overall does well. Has panic attacks at least 2 to 3 times a week for which he uses clonazepam. Patient initially asking for help for substance use and wants a program. Does not want MAT. Discussed and patient agreed to keeping Lexapro 20 mg, which was increased during recent Section 35, since he has ongoing anxiety. Patient soon was feeling much better; still struggle with anxiety but demonstrated he was able to remove himself from a high acuity situation, feeling the medications helped. Initially patient wanted a substance use program however he change his mind and instead plan to discuss back to AA/NA and get himself a sponsor; he did however want to engage with IOP and start with an outpatient therapist. Patient remained in good behavioral and impulse control, good mood, appropriate with peers and staff and engaged in treatment. Patient was thankful for help received and was optimistic about remaining stable and continued sobriety. Patient had returned to baseline and felt ready for d ischarge. Patient was not in imminent risk for harm to self or others and appropriate to return to the community for treatment; his request for discharge honored. Medications: Restarted Lexapro 20 mg; increased a few weeks ago Restarted BuSpar 15 mg t.i.d. Restarted propranolol 10 mg at 16:00 daily Restarted melatonin Restarted baclofen 10 mg at noon and bedtime for chronic back pain Restarted clonazepam 0.5 mg daily p.r.n. for panic; patient has been prescribed this in the past and it is reasonable for panic Time spent discussing smoking cessation with patient: 3 to 10 minutes Status at Discharge Functional status at discharge: independent ambulation Overall status at discharge: patient is back to baseline Time Spent with Patient Time attestation: Total time managing care of this patient today _40___ minutes. Time spent: Greater than 30 minutes Specific discharge activities: Met with patient; discussed with team; charting; prescriptions Discharge Plan Discharge Anticipated Discharge Date/Time: 12/26/24 11:30 Patient Disposition: Home, Self-Care Discharge Diagnosis: MDD, recurrent, severe without psychosis, in full remission Referrals: IOP Intake: Jessica ([facility]) [Other] - 12/27/24 2:00 pm (Appointment is in person at [facility] at the above address in [place]; at your intake appointment, they will direct you as to when you can start the program and the specific days/times You may call the above number with any questions or to cancel/re-schedule your appointment. ) Therapy Intake: Radha Suárez ([facility]) [Other] - 12/30/24 11:00 am (Appointment is in person at the office in [place]. Please arrive 15 minutes early to complete paperwork ) Psych Prescriber: Missy Shah ([facility]) [Other] - 01/25/25 1:00 pm (Telehealth ) Psych Prescriber: Missy Shah ([facility]) [Other] - 02/22/25 10:20 am Discharge Medications: New baclofen 10 mg Tablet 10 mg PO BID@1200,2000 30 Days Qty: 60 1RF propranolol 10 mg Tablet 10 mg PO DAILY@1600 30 Days Qty: 30 1RF Protocol: Hold for SBP/HR < HOLD for SBP < : 90 HOLD for HR < : 60 clonazepam 0.5 mg tablet 0.5 mg PO BEDTIME PRN (Reason: panic attack(s)) 30 Days Qty: 30 0RF olanzapine 5 mg Tablet 5 mg PO BEDTIME PRN (Reason: sleep/agitation) 30 Days Qty: 30 0RF melatonin 3 mg Tablet 6 mg PO BEDTIME 30 Days Qty: 60 1RF Changed gabapentin 300 mg capsule 300 mg PO TID 30 Days Qty: 90 1RF buspirone 15 mg tablet 15 mg PO TID 30 Days Qty: 90 1RF escitalopram oxalate 20 mg tablet 20 mg PO DAILY 30 Days Qty: 30 1RF Discharge Orders: Discharge Order (Routine); Ordered 12/26/24 Ordered By: Edin Mathew Diet: Regular diet Activity on Discharge: As tolerated Stand Alone Forms: Patient Portal Discharge page, Community Support Print Language: Turkmen Care Plan Goals: Maintain mood and safe behaviors Take medications as prescribed Continue to pursue sobriety Practice coping skills Continue with outpatient providers and reach out to them as needed Health Concerns: Mood stability and behaviors Sobriety Plan of Treatment: Follow up with your PCP, psychiatric provider and other outpatient providers regarding above concerns Take medications as prescribed Assessment: Risk assessment at time of discharge:? Patient was interviewed prior to discharge and found to be fully oriented and without any SI or HI. Patient has improved insight and judgment and wants to continue treatment. Patient is not in imminent risk of harm to self or others and has a safety plan that includes presenting to the closest ER or calling 911 if feeling unsafe.? Patient has been observed closely by nursing and unit staff throughout admission; patient has not engaged in any behaviors that suggest dangerousness to self or others and has demonstrated appropriate behaviors and impulse control Discharge Date/Time: 12/26/24 10:55
[2024-12-26] MEDS: Naloxone HCl Nasal TAKE HOME 4 MG SPRAY 8 MG NOSTRILALT (10:51)
== END 2024-12-26 10:55 | disposition home or self-care (01) | DRG 751 ==
LOC: HO.ED 00:51 → HO.PM5 12:53
PROVIDERS: Admitting Provider Clinical Nurse Specialist Psychiatric/Mental Health, Adult; Emergency Provider Emergency Medicine; Visit Provider Psychiatry & Neurology Psychiatry
DX: F33.2 Major depressive disorder, recurrent severe without psychotic features (principal); R45.851 Suicidal ideations; F17.210 Nicotine dependence, cigarettes, uncomplicated; F19.10 Other psychoactive substance abuse, uncomplicated; F14.10 Cocaine abuse, uncomplicated; F41.0 Panic disorder [episodic paroxysmal anxiety]; F11.90 Opioid use, unspecified, uncomplicated; Z71.6 Tobacco abuse counseling; Z79.899 Other long term (current) drug therapy
CPT/HCPCS: 36415; 80053; 80061; 80143; 80179; 80307; 81003; 82607; 82746; 83036; 83735; 84439; 84443; 85025; 93005; 99285; S9485

== ENCOUNTER → 2024-12-20 11:31 | Outpatient (BNV) | payer OTHER, SELFPAY | PROVIDERS: Admitting Provider Clinical Nurse Specialist Psychiatric/Mental Health, Adult; Emergency Provider Emergency Medicine; Visit Provider Internal Medicine Cardiovascular Disease | DX: R45.851 Suicidal ideations (principal) | CPT/HCPCS: 93010 ==

== ENCOUNTER → 2024-12-20 12:23 | Outpatient (BNV) | payer OTHER, SELFPAY | PROVIDERS: Admitting Provider Clinical Nurse Specialist Psychiatric/Mental Health, Adult; Emergency Provider Emergency Medicine; Visit Provider Psychiatry & Neurology Psychiatry | DX: F33.2 Major depressive disorder, recurrent severe without psychotic features (principal); F14.10 Cocaine abuse, uncomplicated; F11.90 Opioid use, unspecified, uncomplicated; F41.0 Panic disorder [episodic paroxysmal anxiety] | CPT/HCPCS: 99232 ==